=== PATIENT | male | born 1945 | race Caucasian/White ===

== ENCOUNTER 2017-04-15 07:47 | Day surgery (SDC) | payer MEDICARE, BC ==
[~2017-04-15 07:47] MED LIST: DEXAMETHASONE SOD PHOSPHATE 10 MG/ML 1 ML VIAL IV ONE; HEPARIN SODIUM,PORCINE 5,000 UNIT/ML 1 ML VIAL SQ ONE; LACTATED RINGERS 1,000 ML IV SCH; LIDOCAINE 1% 20 ML VIAL (10MG/ML) FOR IV START INTRADERMA PRN; MIDAZOLAM 2 MG/2 ML VIAL IV PRN; ONDANSETRON 4 MG/2 ML VIAL IVP ONE; SCOPOLAMINE 1.5MG/72HR PATCH TRANSDERM ONE
--- NOTE | 2017-04-15 08:14 | P.GSHP ---
History of Present Illness H&P Date: 04/15/17 Chief Complaint: Ventral hernia Patient was last seen in January. The patient has complaints of a bulge in the upper midabdomen in addition to a bulge in the right arm. Both areas are increasing in size. Mild pain at times. Denies nausea vomiting. No change in bowel habits. No prior surgeries at these locations. Past Medical History Past Medical History: GERD/Reflux, Sleep Apnea/CPAP/BIPAP Additional Past Medical History / Comment(s): SEASONAL ALLERGIES. HYPOGLYCEMIC. USE CPAP. History of Any Multi-Drug Resistant Organisms: None Reported Past Surgical History: Joint Replacement Additional Past Surgical History / Comment(s): MAJOR INJURY TO RIGHT HAND WITH ARTIFICIAL JOINTS. LEFT HAND INJURY, PARTIAL AMPUTATION OF INDEX FINGER. LUMBAR SURGERY. Past Anesthesia/Blood Transfusion Reactions: No Reported Reaction Past Psychological History: No Psychological Hx Reported Smoking Status: Former smoker Past Alcohol Use History: None Reported Additional Past Alcohol Use History / Comment(s): SMOKED FOR 35 YRS, ABOUT 2 PPW , QUIT 2001. Past Drug Use History: None Reported - Past Family History Mother Family Medical History: No Reported History Medications and Allergies Home Medications Medication Instructions Recorded Confirmed Type Cyclobenzaprine [Flexeril] 10 mg PO HS 04/13/17 04/13/17 History Diclofenac Sodium [Voltaren] 75 mg PO QAM 04/13/17 04/13/17 History Fluticasone Nasal [place] [Flonase 1 dose NASAL DAILY 04/13/17 04/13/17 History Nasal [place]] Omeprazole 20 mg PO BID 04/13/17 04/13/17 History Simvastatin 40 mg PO HS 04/13/17 04/13/17 History Allergies Allergy/AdvReac Type Severity Reaction Status Date / Time No Known Allergies Allergy Verified 04/13/17 09:03 Surgical - Exam Physical exam: General: Well-developed, well-nourished HEENT: Normocephalic, sclerae nonicteric Abdomen: Nontender, nondistended, midway between xiphoid and umbilicus is a nonreducible mass consistent with an incarcerated ventral hernia fascial defect nonpalpable Extremities: No edema, 5 cm subcutaneous mass lateral right brachial region Neuro: Alert and oriented Assessment and Plan (1) Ventral hernia Narrative/Plan: Will proceed with lipoma excision and repair incarcerated ventral hernia with mesh at this time. Risks of bleeding, infection, recurrence, chronic pain, numbness, scarring, bowel injury and adhesions, seroma formation were discussed. He understands and wishes to proceed. Current Visit: Yes Status: Acute Code(s): K43.9 - VENTRAL HERNIA WITHOUT OBSTRUCTION OR GANGRENE SNOMED Code(s): 112514692
[2017-04-15] MEDS ORDERED: MIDAZOLAM 2 MG/2 ML VIAL IVP ONE (09:15)
[2017-04-15 09:20] LABS: Glucose,Whole Blood 94 mg/dL (75-99)
--- NOTE | 2017-04-15 09:44 | P.ONQ ---
Anesthesiology Proc Note - PNB - Peripheral Nerve Block Performed Other (see comment) Time Out Performed: Yes (Bilateral Rectus Sheath block) Procedure Start Time: :01 Procedure Stop Time: :17 Indication: Acute Post-Operative Pain, Requested by physician Sedation Type: Sedate with meaningful contact maintained Preparation: Sterile Prep Position: Supine Catheter: None Needle Size: 100mm (4") Needle Gauge: 20 Technique: Ultrasound Injectate: 0.5% Ropivacaine (see comment for volume) (Total of 40 cc) Blood Aspirated: No Pain Paresthesia on Injection Noted: No Resistance on Injection: Normal
[2017-04-15] MEDS ORDERED: fentaNYL (PF) 50 MCG/ML 2 ML AMP ONE (09:54)
[2017-04-15] MEDS ORDERED: MIDAZOLAM 2 MG/2 ML VIAL ONE (09:54)
[2017-04-15] MEDS: ceFAZolin IN SWFI 2 GM/20 ML SYRINGE IVP ONE ×2 (09:54→09:58)
[2017-04-15] MEDS ORDERED: ePHEDrine SULFATE/0.9% NACL/PF 50 MG/5 ML SYRINGE IV ONE (09:54)
[2017-04-15] MEDS ORDERED: LIDOCAINE 1% INJ 10MG/ML (20 ML MDV) ONE (09:54)
[2017-04-15] MEDS ORDERED: PROPOFOL 10 MG/ML 20 ML VIAL IV ONE (09:54)
[2017-04-15] MEDS ORDERED: ROPIVACAINE 5 MG/ML 30 ML VIAL ONE (09:54)
[2017-04-15] MEDS ORDERED: LIDOCAINE 2%-EPI 1:100,000 20 ML VIAL ONE (09:54)
[2017-04-15] MEDS ORDERED: SUCCINYLCHOLINE CHLORIDE VIAL 200 MG/10 ML VIAL IV ONE (09:54)
[2017-04-15] MEDS ORDERED: BUPIVACAINE (PF) 0.25% 30 ML VIAL SQ ONE (10:11)
[2017-04-15] MEDS ORDERED: HYDROcodone/APAP 5-325MG 1 EACH TAB PO PRN (11:04)
[2017-04-15] MEDS ORDERED: NALOXONE 0.4 MG/ML 1 ML VIAL IV PRN (11:04)
[2017-04-15 11:15] VITALS: TEMP 98.1
--- NOTE | 2017-04-15 11:25 | P.OP ---
Date of Procedure: 04/15/17 Procedure(s) Performed: PREOPERATIVE DIAGNOSIS: Ventral hernia, right arm lipoma POSTOPERATIVE DIAGNOSIS: Same PROCEDURE: Repair ventral hernia with mesh, excision of right arm lipoma SURGEON: Brant EBL: Minimal ANESTHESIA: General COMPLICATIONS: None OPERATIVE PROCEDURE: Patient was placed in the operating table in the supine position. The patient's abdomen was prepped and draped in usual sterile fashion. A vertical incision made overlying the mass in the upper midabdomen. A hernia was identified. The hernia sac was excised. The omentum which was present within the hernia was reduced back into the peritoneal cavity. The defect measured 1.5 cm in diameter. A 4.3cm ventral X mesh was placed beneath the fascia and sutured in place using 0 Ethibond trans-fascial sutures. The fascia was repaired in a vest over pants fashion using 0 Ethibond sutures. The subcutaneous tissues were closed using 3-0 Vicryl sutures. The skin was closed using 4-0 Monocryl sutures. Steri-Strips and sterile dressings were applied. Next the right arm was prepped and draped. A small longitudinal incision was made overlying the palpable mass. This turned out to be a lipoma. This measured 5 x 3 cm in size. This was fully excised. The subcutaneous tissues were closed using 3-0 Vicryl sutures and the skin was closed using 4-0 Monocryl sutures. Steri-Strips and sterile dressings were applied. DISPOSITION: Stable to recovery room
[2017-04-15] MEDS: HYDROmorphone 0.5 MG/0.5 ML SYRINGE IVP PRN ×4 (11:34→12:07)
[2017-04-15] MEDS ORDERED: SODIUM CHLORIDE 0.9% 1,000 ML IV ONE ×2 (11:39)
[2017-04-15 12:19] VITALS: RESP 18
[2017-04-15] MEDS ORDERED: PROMETHAZINE INJ 25 MG/ML 1 ML VIAL IVPB ONE (13:33)
[2017-04-15 13:38] VITALS: BP 136/73; PULSE 66
== END 2017-04-15 14:18 | disposition home or self-care (01) ==
LOC: OR 07:47
PROVIDERS: ATTEND Surgery
DX: K43.9 Ventral hernia without obstruction or gangrene (principal); D17.21 Benign lipomatous neoplasm of skin and subcutaneous tissue of right arm; K21.9 Gastro-esophageal reflux disease without esophagitis; G47.30 Sleep apnea, unspecified; Z99.89 Dependence on other enabling machines and devices; J30.2 Other seasonal allergic rhinitis; E16.2 Hypoglycemia, unspecified; E78.5 Hyperlipidemia, unspecified; M19.90 Unspecified osteoarthritis, unspecified site; Z79.899 Other long term (current) drug therapy; Z87.891 Personal history of nicotine dependence
CPT/HCPCS: 49560; 49568; 11406; 12032; 88304; 88302; C1781; J2250; J0330; J1644; J1100; J2550; J0690; J2405; J2001; J3010; J2795; J2704; J1170; 86850; 86900; 86901

== ENCOUNTER → 2017-10-06 | Outpatient (CLI) | payer MEDICARE, BC ==
--- NOTE | 2017-10-07 07:11 | US ---
EXAMINATION TYPE: US kidneys/renal and bladder DATE OF EXAM: 10/06/2017 COMPARISON: NONE CLINICAL HISTORY: N13.30 Hydronephrosis. Pt states H/O renal stones, lithotripsy in June EXAM MEASUREMENTS: Right Kidney: 12.7 x 6.3 x 7.1 cm Left Kidney: 11.5 x 6.3 x 5.9 cm Right Kidney: Cyst= 6.2 x 5.3 x 9.7 cm Left Kidney: No evidence of hydro, possible small calculi (<0.5 cm) scattered throughout Bladder: wnl Bilateral Jets seen: Yes There is no evidence for hydronephrosis at this point in time. The urinary bladder is anechoic. Bila teral ureteral jets are seen. IMPRESSION: 1. No evidence of hydronephrosis bilaterally. 2. Simple appearing 6.2 x 5.3 x 9.7 cm right renal cysts. 3. Multiple punctate left-sided nonobstructing hyperechoic foci, possible less than 5 mm renal cysts versus prominent renal sinus fat as no significant shadowing is seen.
== END | disposition home or self-care (01) ==
LOC: RADUSWWP 15:40
PROVIDERS: ATTEND Urology
DX: N28.1 Cyst of kidney, acquired (principal); R93.422 Abnormal radiologic findings on diagnostic imaging of left kidney
CPT/HCPCS: 76770

== ENCOUNTER → 2017-12-09 | Outpatient (CLI) | payer MEDICARE, BC ==
[2017-12-09 10:24] LABS: Blood Urea Nitrogen 33 mg/dL (9-20)
--- NOTE | 2017-12-09 14:14 | NM ---
EXAMINATION TYPE: NM bone scan whole body DATE OF EXAM: 12/09/2017 COMPARISON: NONE HISTORY: Prostate cancer Delayed whole-body scanning was performed following the injection of 23.2 mCi Tc 99m MDP. Images acq uired 3 hours post injection. FINDINGS: Abnormal uptake involving the shoulders, wrists, knees, and feet likely is post arthritic. Intermediate intensity uptake seen throughout the cervical, thoracic and lumbar spine. More localized focal area of increased uptake involving the left lateral margin of the mid to upper cervical spine. IMPRESSION: 1. Abnormal uptake involving the vertebral column is nonspecific felt to be most likely degenerative and should be correlated with x-ray particular attention to the mid left lateral margin of the cervic al spine. Correlation was made with CT of the pelvis dated 12/09/2017 which demonstrated tiny foci of sclerosis involving the right femur and acetabulum which does not demonstrate significant uptake. Abn ormal uptake involving the lower lumbar spine appears to be degenerative based on the visualized port ions of the vertebral column imaged by CT pelvis. 2. Remaining uptake involving the appendicular skeleton is likely post arthritic.
--- NOTE | 2017-12-09 14:43 | CT ---
EXAMINATION TYPE: CT pelvis w con DATE OF EXAM: 12/09/2017 COMPARISON: 10/06/2017 ultrasound INDICATION: Prostate Cancer DLP: 1257 mGycm, Automated exposure control for dose reduction was used. CONTRAST: 100 ml mL of Isovue 300. Study performed with Oral Contrast TECHNIQUE: Axial images were obtained from above the diaphragm to the pubic rami in the axial plane a t 5 mm thick sections. Reconstructed images are reviewed on the computer in the coronal plane. FINDINGS: Limited lower portion CT upper ABDOMEN : Liver: A cyst may be at the edge of the [id number]. This cannot be classified as a simple cyst and this could be followed with ultrasound of the abdomen. This measures 1.1 cm. Lower portion of the li cora visualized otherwise is unremarkable. Spleen: Punctate granulomas within the inferior portion spleen within the [id number]. Pancreas: Normal Adrenal glands: The adrenal glands are normal. Gallbladder: Normal Kidneys: No masses are evident. No hydronephrosis is present. There is a 1.8 cm cyst measuring 19 H ounsfield units posterior superior pole left kidney. There is a large cyst within the mid right kidne y measuring 10.0 x 5.6 cm and 4 Hounsfield units. A 0.9 cm cortical renal cyst is within the anterior right renal cortex. Aorta: Vascular calcification is within the aorta. Vascular calcification extends to the iliac vesse ls. Inferior vena cava: Normal. CT PELVIS: Loops of bowel within the abdomen and pelvis are normal. There are loops of bowel which are incom pletely distended or lack oral contrast limiting their evaluation. Oral contrast extends to the dista l small bowel loops. Appendix: Normal as visualized. Urinary bladder: Normal. Genitourinary structures: Prostate is prominent. Osseous structures: No suspicious lytic or sclerotic lesions. Degenerative disc changes and spondylos is are within the lumbar spine. Sacroiliac joint degenerative changes are present. IMPRESSIONS: 1. Simple appearing renal cysts. 2. Prominent prostate compatible with the patient's reported prostate cancer. Metastatic disease is n ot identified. 3. Degenerative changes within the lumbar spine. 4. Partially visualized hypodensity within the liver at the edge the [id number]. Consider ultrasou nd abdomen for additional evaluation.
== END | disposition home or self-care (01) ==
LOC: RADNMMAIN 09:35
PROVIDERS: ATTEND Urology
DX: N28.1 Cyst of kidney, acquired (principal); K76.89 Other specified diseases of liver; R94.8 Abnormal results of function studies of other organs and systems
CPT/HCPCS: 82565; 84520; 72193; 36415; 78306; A9503; Q9967

== ENCOUNTER → 2017-12-15 | Outpatient (CLI) | payer MEDICARE, BC ==
--- NOTE | 2017-12-15 09:03 | XR ---
EXAMINATION TYPE: XR cervical spine comp DATE OF EXAM: 12/15/2017 COMPARISON: NONE HISTORY: Pain TECHNIQUE: Four views are submitted. FINDINGS: The odontoid is intact. There are no compression deformities. The prevertebral soft tissue structur es are within normal limits. Diffuse osteopenia. There is severe degenerative disc disease at level C3-T1 with severe facet arthropathy and posterior spondylosis. Anterior spur formation noted. There i s a 2 mm anterolisthesis of C3 on C4. Foraminal encroachment at these levels noted bilaterally. IMPRESSION: 1. Severe multilevel degenerative disc disease with grade 1 anterolisthesis C3 on C4. Severe bilatera l foraminal encroachment level C3-T1.
== END | disposition home or self-care (01) ==
LOC: RADXRMAIN 08:33
PROVIDERS: ATTEND Urology
DX: M50.33 Other cervical disc degeneration, cervicothoracic region (principal); M43.12 Spondylolisthesis, cervical region; C61 Malignant neoplasm of prostate
CPT/HCPCS: 72050

== ENCOUNTER → 2018-02-10 | Outpatient (CLI) | payer MEDICARE, BC ==
[2018-02-10 09:20] LABS: Appearance,Urine Clear (Clear); Bilirubin,Urine Negative (Negative); Blood,Urine Negative (Negative); Color,Urine Dark Yellow; Glucose,Urine (UA) Negative (Negative); Ketones,Urine Negative (Negative); Leukocyte Esterase,Urine Trace (Negative); Mucus,Urine Few /hpf; Nitrite,Urine Negative (Negative); PH, Urine 5.5 (5.0-8.0); Protein,Urine Trace (Negative); Specific Gravity,Urine 1.038 (1.001-1.035); Urobilinogen,Urine <2.0 mg/dL (<2.0); WBC,Urine 2 /hpf (0-5)
[2018-02-10 09:22] LABS: Basophils # (A) 0.1 k/uL (0-0.2); Basophils % (A) 1 %; Eosinophils # (A) 0.2 k/uL (0-0.7); Eosinophils % (A) 4 %; HCT 45.3 % (39.0-53.0); Lymphocytes # (A) 1.4 k/uL (1.0-4.8); Lymphocytes % (A) 27 %; MCH 29.6 pg (25.0-35.0); MCV 89.6 fL (80.0-100.0); Mean Platelet Volume 6.7; Monocytes # (A) 0.3 k/uL (0-1.0); Monocytes % (A) 6 %; Neutrophils % (A) 58 %; Platelet Count 275 k/uL (150-450); RBC 5.06 m/uL (4.30-5.90); RDW 13.3 % (11.5-15.5); WBC 5.1 k/uL (3.8-10.6)
[2018-02-10 09:47] LABS: Anion Gap 9 mmol/L; Blood Urea Nitrogen 27 mg/dL (9-20); Calcium 9.6 mg/dL (8.4-10.2); Carbon Dioxide 24 mmol/L (22-30); Chloride 109 mmol/L (98-107); Glucose 103 mg/dL (74-99); Potassium 4.6 mmol/L (3.5-5.1); Sodium 142 mmol/L (137-145)
== END | disposition home or self-care (01) ==
LOC: LABPAT 08:26
PROVIDERS: ATTEND Urology
DX: Z01.812 Encounter for preprocedural laboratory examination (principal); C61 Malignant neoplasm of prostate
CPT/HCPCS: 36415; 80048; 81001; 85025; 87086

== ENCOUNTER 2018-02-17 11:12 | Day surgery (SDC) | payer MEDICARE, BC ==
[2018-02-10 15:23] VITALS: BMI 28.3
--- NOTE | 2018-02-11 13:40 | P.GSHP ---
History of Present Illness H&P Date: 02/11/18 Chief Complaint: Prostate cancer The patient is a 72-year-old male whose PSA level emily to 3.97. MARTIN revealed right apical induration. In view of this, he underwent a prostate ultrasound with biopsies, revealing a prostate volume of 37 mL. 5 of 12 biopsies showed Katty 78, all on the right side. A computed tomography scan of the pelvis was negative. A bone scan showed increased uptake in the spine, likely due to degenerative changes. I had a lengthy discussion with the patient and his regarding alternative treatment options. Specifically, the pros and cons of IMRT/ADT were compared and contrasted with those of robotic-assisted laparoscopic prostatectomy (RALP). He has elected to undergo a left nerve sparing RALP with pelvic lymphadenectomy. Past Medical History Past Medical History: GERD/Reflux, Prostate Disorder, Sleep Apnea/CPAP/BIPAP Additional Past Medical History / Comment(s): dx prostate CA Nov 2017-no radiation or chemo,steroid injection Dec 2017,SEASONAL ALLERGIES. HYPOGLYCEMIC. USE CPAP,kidney stone History of Any Multi-Drug Resistant Organisms: None Reported Past Surgical History: Back Surgery, Hernia Repair, Joint Replacement Additional Past Surgical History / Comment(s): MAJOR INJURY TO RIGHT HAND WITH ARTIFICIAL JOINTS. LEFT HAND INJURY-PARTIAL AMPUTATION OF Lt-INDEX FINGER. LUMBAR SURGERY,kidney stone removed,umbilical hernia repair with mesh Past Anesthesia/Blood Transfusion Reactions: No Reported Reaction Additional Past Anesthesia/Blood Transfusion Reaction / Comment(s): no hx blood transfusion Smoking Status: Former smoker - Past Family History Mother Family Medical History: No Reported History Medications and Allergies Home Medications Medication Instructions Recorded Confirmed Type Cyclobenzaprine [Flexeril] 10 mg PO HS 04/13/17 02/10/18 History Diclofenac Sodium [Voltaren] 75 mg PO QAM 04/13/17 02/10/18 History Fluticasone Nasal [place] [Flonase 1 dose NASAL DAILY 04/13/17 02/10/18 History Nasal [place]] Omeprazole 20 mg PO BID 04/13/17 02/10/18 History Simvastatin 40 mg PO HS 04/13/17 02/10/18 History Multivit-Min/FA/Lycopen/Lutein 1 each PO DAILY 02/10/18 02/10/18 History [Centrum Silver Men Tablet] Ortho 7 And Instaflex Jt Suppl 2 tab PO DAILY 02/10/18 02/10/18 History Allergies Allergy/AdvReac Type Severity Reaction Status Date / Time No Known Allergies Allergy Verified 02/10/18 15:05 Surgical - Exam - General well developed, well nourished, no distress - Respiratory normal respiratory effort, clear to auscultation - Cardiovascular Rhythm: regular Abnormal Heart Sounds: no systolic murmur, no diastolic murmur, no rub, no S3 Gallop, no S4 Gallop, no click, no other - Abdomen Abdomen: soft, non tender, no guarding, no rigid, no rebound - Genitourinary normal penis with no external lesions, testicles non-tender - Rectum Rectum: normal sphincter tone, no masses, other (Prostate mildly enlarged, right apical induration) - Psychiatric oriented to time, oriented to person, oriented to place, speech is normal, memory intact Assessment and Plan (1) Malignant neoplasm of prostate Status: Acute Code(s): C61 - MALIGNANT NEOPLASM OF PROSTATE SNOMED Code(s): 342204872 Plan: Left Nerve-Sparing Robotic Assisted Laparoscopic Prostatectomy (RALP) and Bilateral Pelvic Lymphadenectomy. The procedure has been reviewed in detail with the patient. I explained that this is a procedure of choice in a healthy male under 70 years of age or in any person who has an expected longevity of greater than 10 years. I explained in great detail the potential risks, which include anesthesia, bleeding, and infection. In addition, I went into great detail concerning the two common complications, ie impotence and urinary incontinence. I explained that other complications include intestinal injury ( which may require a colostomy), ureteral injury, swelling of the penis post- operatively, bladder neck contracture, urethral stricture, lymphocele, post- operative ileus, thrombophlebitis, wound separation, and possible urinary fistula. The patient has also been advised of the possibility of treatment failure, and the possible need for adjuvant therapy. He is interested in maintaining potency and thus desires left neurovascular bundle preservation. However, he understands the probability of postoperative erectile dysfunction despite preservation of one neurovascular bundle. He has elected to undergo an RALP rather than an open radical retropubic prostatectomy , but he understands the possible need to convert this to an open procedure.
[~2018-02-17 11:12] MED LIST changes: -HEPARIN SODIUM,PORCINE 5,000 UNIT/ML 1 ML VIAL SQ ONE; +HYDROmorphone 1 MG/ML 1 ML SYRINGE IVP PRN; -LACTATED RINGERS 1,000 ML IV SCH; -LIDOCAINE 1% 20 ML VIAL (10MG/ML) FOR IV START INTRADERMA PRN; +ceFAZolin IN SWFI 2 GM/20 ML SYRINGE IVP ONE
[2018-02-17] MEDS: LACTATED RINGERS 1,000 ML IV SCH ×2 (11:51→13:12)
[2018-02-17] MEDS: LIDOCAINE 1% 20 ML VIAL (10MG/ML) FOR IV START INTRADERMA PRN ×2 (11:53→11:54)
[2018-02-17 11:59] LABS: Glucose,Whole Blood 89 mg/dL (75-99)
[2018-02-17] MEDS ORDERED: fentaNYL (PF) 50 MCG/ML 2 ML AMP ONE (13:16)
[2018-02-17] MEDS ORDERED: MIDAZOLAM 2 MG/2 ML VIAL ONE (13:16)
[2018-02-17] MEDS ORDERED: LIDOCAINE 1% INJ 10MG/ML (20 ML MDV) ONE (13:16)
[2018-02-17] MEDS ORDERED: ePHEDrine SULFATE/0.9% NACL/PF 50 MG/5 ML SYRINGE IV ONE (13:16)
[2018-02-17] MEDS ORDERED: GLYCOPYRROLATE 0.2 MG/ML 2 ML VIAL ONE (13:16)
[2018-02-17] MEDS ORDERED: ROCURONIUM BROMIDE 10 MG/ML 10 ML VIAL IV ONE (13:16)
[2018-02-17] MEDS ORDERED: NEOSTIGMINE 1 MG/ML 10 ML VIAL ONE (13:16)
[2018-02-17] MEDS ORDERED: SUCCINYLCHOLINE CHLORIDE 100 MG/5 ML SYR IV ONE (13:16)
[2018-02-17] MEDS ORDERED: PROPOFOL 10 MG/ML 20 ML VIAL IV ONE (13:16)
[2018-02-17] MEDS ORDERED: BUPIVACAINE (PF) 0.25% 30 ML VIAL SQ ONE ×2 (14:07→17:14)
[2018-02-17] MEDS ORDERED: ONDANSETRON 4 MG/2 ML VIAL IVP PRN (17:26)
--- NOTE | 2018-02-17 17:33 | P.OP ---
Date of Procedure: 02/17/18 Preoperative Diagnosis: Adenocarcinoma of the prostate Postoperative Diagnosis: Same Procedure(s) Performed: Left robotic-assisted laparoscopic prostatectomy (RALP) with bilateral pelvic lymphadenectomy Anesthesia: JALIL Surgeon: Zackary Peguero Scheduling Manager #1: Alanna Pate Estimated Blood Loss (ml): 150 IV fluids (ml): 1,200 Pathology: other (Prostate, seminal vesicles, pelvic lymph nodes) Condition: stable Disposition: PACU Indications for Procedure: The patient is a 72-year-old male whose PSA level emily to 3.97. MARTIN revealed right apical induration. In view of this, he underwent a prostate ultrasound with biopsies, revealing a prostate volume of 37 mL. 5 of 12 biopsies showed [place] 78, all on the right side. A computed tomography scan of the pelvis was negative. A bone scan showed increased uptake in the spine, likely due to degenerative changes. I had a lengthy discussion with the patient and his regarding alternative treatment options. Specifically, the pros and cons of IMRT/ADT were compared and contrasted with those of robotic-assisted laparoscopic prostatectomy (RALP). He has elected to undergo a left nerve sparing RALP with pelvic lymphadenectomy. Operative Findings: No evidence of extraprostatic disease. Description of Procedure: The patient was taken in the operating room and placed in the dorsal lithotomy position, with his legs supported in Jose Guadalupe stirrups. He was carefully positioned on a beanbag for stability. The abdomen and external genitalia were prepped and draped sterilely. A Portillo catheter was inserted. The Veress needle was passed through the anterior abdominal wall immediately cephalad to the umbilicus, and insufflation was performed to a pressure of 20 mm Hg. Once insufflation was performed, the Veress needle was removed and a supraumbilical incision was made, through which an 8 mm camera port was placed. Under camera guidance, 3 8 mm robotic ports were placed, 2 on the left and one on the right. An additional 12 mm port was placed on the right lateral side for use as an assistant analyst port. A 5 mm port was placed to the right of the camera port for suction. The patient was placed in Trendelenburg position, and docking was then performed to the da Candis Xi system utilizing a 4-arm approach. The abdomen was examined. The sigmoid colon was mobilized out of the pelvis. The peritoneum was incised lateral to the medial umbilical ligaments bilaterally , exposing the pubis. The peritoneum was then incised across the midline, allowing the bladder flap to be taken down. The endopelvic fascia was opened bilaterally, and muscular attachments from the urogenital diaphragm were swept away from the prostate. Extended bilateral pelvic lymphadenectomies were performed in the standard fashion. The peritoneal incisions were extended in a cephalad direction, and the vas deferens were divided bilaterally. Margins of dissection were the bifurcation of the iliac vessels proximally, the circumflex iliac vein distally , the genital femoral nerve laterally, and the obturator nerve medially. A combination of sharp and blunt dissection was used. Care was taken to avoid any neurovascular injury, and the use of monopolar electrocautery was avoided immediately adjacent to neurovascular structures. The lymphatic package was clipped distally. No enlarged lymph nodes were encountered. There were no complications. The vesical neck was incised transversely, down to the lumen. The Portillo catheter was brought out through the anterior vesical neck incision and was used for traction. The posterior aspect of the vesical neck was incised, such that the full-thickness of the vesical neck was divided. The anterior layer of the Denonvilliers fascia was incised, exposing the vas deferens. Each were isolated and divided. Next, each of the seminal vesicles were dissected away from adjacent tissues, and vascular attachments were cauterized and divided. The posterior leaf of Denonvilliers fascia was incised transversely, allowing entry into the plane between the prostate and rectum. With lateral spreading, this plane was developed down to the apex. This exposed the lateral vascular pedicles bilaterally. These were clipped and divided in an antegrade fashion, down to the apex. The use of electrocautery was avoided to prevent thermal damage to the nerves. The plane of dissection was immediately adjacent to the prostate on the left to preserve the neurovascular bundle, whereas the right neurovascular bundle was not preserved. The remaining apical attachments were swept away from the prostate. The dorsal venous complex was incised, as well as periurethral tissue. At this point, only the urethra remained intact. This was transected immediately distal to the prostatic apex using cold scissors. The specimen was placed within a specimen bag. The dorsal venous complex was sutured using a V-Loc suture in a running fashion. A second V-Loc suture was then used to place the Nathan stitch, incorporating the rhabdosphincter and the edge of Denonvilliers fascia. This allowed the bladder to be taken down to the urethra, leaving the vesical neck immediately adjacent to the urethra. The vesicourethral anastomosis was then performed using a V-Loc suture in a running fashion. After completing the anastomosis, an 18-Persian Portillo catheter was placed and approximately 150 mL of 0.9 normal saline were instilled into the bladder. No extravasation of irrigant from the vesicourethral anastomosis was noted. A small amount of oozing was noted from the vascular pedicles, so Surgicel was placed bilaterally. The patient was returned to the supine position. Undocking was performed, and the specimen bag sutures were passed through the camera port. After removing all the ports and allowing all of the CO2 to be released from the peritoneal cavity, the camera port incision was enlarged to allow removal of the surgical specimen. The fascia of this incision was then closed using 0 Vicryl suture in an interrupted [id number] fashion. Each of the skin incisions were then closed using 4-0 Monocryl suture in a subcuticular fashion. Dermabond was applied to each incision. The Portillo catheter was connected to gravity drainage. All sponge and needle counts were correct. The patient tolerated the procedure well was taken to the recovery room in stable condition.
[2018-02-17] MEDS ORDERED: HYDROmorphone 1 MG/ML 1 ML SYRINGE IVP ONE (17:50)
[2018-02-17] MEDS: HEPARIN SODIUM,PORCINE 5,000 UNIT/ML 1 ML VIAL SQ SCH (21:54)
[2018-02-17] MEDS: KETOROLAC 30 MG/ML 1 ML VIAL IVP SCH (21:54)
[2018-02-17] MEDS: CYCLOBENZAPRINE 10 MG TAB PO SCH (21:54)
[2018-02-17] MEDS: ATORVASTATIN 20 MG TAB PO SCH (21:54)
[2018-02-17] MEDS: ACETAMINOPHEN IV (For NPO) 1,000 MG in SALINE 1 100ML.BAG IVPB SCH (21:55)
[2018-02-17] MEDS: DEXTROSE 5%-0.45% NACL 1,000 ML IV SCH (21:56)
[2018-02-18] MEDS: ACETAMINOPHEN IV (For NPO) 1,000 MG in SALINE 1 100ML.BAG IVPB SCH ×5 (01:23→22:17)
[2018-02-18] MEDS: KETOROLAC 30 MG/ML 1 ML VIAL IVP SCH ×5 (01:24→22:16)
[2018-02-18] MEDS: HYDROmorphone 1 MG/ML 1 ML SYRINGE IVP PRN ×2 (02:39→21:14)
[2018-02-18] MEDS: DEXTROSE 5%-0.45% NACL 1,000 ML IV SCH ×4 (05:28→22:18)
[2018-02-18] MEDS: PANTOPRAZOLE 40 MG TABLET PO SCH (09:11)
[2018-02-18] MEDS: HEPARIN SODIUM,PORCINE 5,000 UNIT/ML 1 ML VIAL SQ SCH ×2 (09:12→21:14)
[2018-02-18] MEDS: FLUTICASONE 50MCG/SPRAY NASAL 16GM NASAL SCH (10:22)
[2018-02-18] MEDS: LACTATED RINGERS 1,000 ML IV SCH (17:01)
[2018-02-18] MEDS: CYCLOBENZAPRINE 10 MG TAB PO SCH (21:14)
[2018-02-18] MEDS: ATORVASTATIN 20 MG TAB PO SCH (21:14)
[2018-02-19] MEDS: KETOROLAC 30 MG/ML 1 ML VIAL IVP SCH ×2 (04:51→09:12)
[2018-02-19] MEDS: ACETAMINOPHEN IV (For NPO) 1,000 MG in SALINE 1 100ML.BAG IVPB SCH ×2 (04:52→15:49)
[2018-02-19] MEDS: HEPARIN SODIUM,PORCINE 5,000 UNIT/ML 1 ML VIAL SQ SCH (09:12)
[2018-02-19] MEDS: PANTOPRAZOLE 40 MG TABLET PO SCH (09:13)
[2018-02-19] MEDS: FLUTICASONE 50MCG/SPRAY NASAL 16GM NASAL SCH (09:14)
[2018-02-19] MEDS: DEXTROSE 5%-0.45% NACL 1,000 ML IV SCH (10:58)
[2018-02-19 15:49] VITALS: BP 150/72; PULSE 67; RESP 12; TEMP 98.5
--- NOTE | 2018-02-19 16:40 | P.DS ---
Providers Expected date of discharge: 02/19/18 Attending physician: Zackary Peguero Primary care physician: Gilmer Lee Bacheldor - Discharge Diagnosis(es) (1) Malignant neoplasm of prostate Current Visit: No Status: Acute Hospital Course: On the day of admission, the patient underwent an uncomplicated robotic assisted laparoscopic prostatectomy (RALP) with bilateral pelvic lymphadenectomy. The postoperative course was unremarkable. On the first postoperative day, the patient reported some abdominal discomfort and an unsteady gait. He therefore remained hospitalized an additional day. At the time of discharge, he was tolerating diet and passing flatus. He was ambulating well and overall felt quite good. His incisions were clean and dry. The catheter was draining clear yellow urine. Procedures: RALP with bilateral pelvic lymphadenectomy on 02/17/2018 Patient Condition at Discharge: Good Plan - Discharge Summary Discharge Rx Participant: Yes New Discharge Prescriptions: New Ketorolac [Toradol] 10 mg PO Q6HR #15 tab Ciprofloxacin HCl [Cipro] 250 mg PO Q12HR #6 tablet No Action Simvastatin 40 mg PO HS Omeprazole 20 mg PO BID Fluticasone Nasal [place] [Flonase Nasal [place]] 1 dose NASAL DAILY Diclofenac Sodium [Voltaren] 75 mg PO QAM Cyclobenzaprine [Flexeril] 10 mg PO HS Multivit-Min/FA/Lycopen/Lutein [Centrum Silver Men Tablet] 1 each PO DAILY Ortho 7 And Instaflex Jt Suppl 2 tab PO DAILY Discharge Medication List Cyclobenzaprine [Flexeril] 10 mg PO HS 04/13/17 [History] Diclofenac Sodium [Voltaren] 75 mg PO QAM 04/13/17 [History] Fluticasone Nasal [place] [Flonase Nasal [place]] 1 dose NASAL DAILY 04/13/17 [ History] Omeprazole 20 mg PO BID 04/13/17 [History] Simvastatin 40 mg PO HS 04/13/17 [History] Multivit-Min/FA/Lycopen/Lutein [Centrum Silver Men Tablet] 1 each PO DAILY 02/10 [History] Ortho 7 And Instaflex Jt Suppl 2 tab PO DAILY 02/10/18 [History] Ciprofloxacin HCl [Cipro] 250 mg PO Q12HR #6 tablet 02/19/18 [Rx] Ketorolac [Toradol] 10 mg PO Q6HR #15 tab 02/19/18 [Rx] Follow up Appointment(s)/Referral(s): Zackary Peguero MD [STAFF PHYSICIAN] - 02/25/18 Activity/Diet/Wound Care/Special Instructions: Discharge home with Portillo catheter. Okay to shower. Diet as tolerated. No lifting, driving, or strenuous activity. Patient should begin taking ciprofloxacin on 02/24/2018. Discharge Disposition: HOME SELF-CARE
--- NOTE | 2018-02-20 08:20 | P.PN ---
Subjective Progress Note Date: 02/18/18 Principal diagnosis: POD #1, s/p RALP Mr. Gill tolerated clear liquid diet. He reports mild abdominal discomfort, and feels unsteady on his feet. He denies chest pain and shortness of breath. Objective - Vital Signs Vital signs: Vital Signs Temp 98.1 F 02/18/18 08:19 Pulse 74 02/18/18 08:19 Resp 16 02/18/18 08:19 BP 111/57 02/18/18 08:19 Pulse Ox 96 02/18/18 08:19 Intake & Output 02/17/18 02/18/18 02/18/18 18:59 06:59 18:59 Intake Total 1300 1400 Output Total 150 500 Balance 1150 900 Intake: IV 1300 Intake, IV Titration 1400 Amount ACETAMINOPHEN IV (For NPO 400 ) 1,000 mg In Saline 1 100ml.bag @ 400 mls/hr IVPB Q6H ANTHONY Rx#: [id number] Dextrose 5%-0.45% NaCl 1, 1000 000 ml @ 125 mls/hr IV . Q8H ANTHONY Rx#:[id number] Output: Urine 500 Estimated Blood Loss 150 Other: Voiding Method Indwelling Catheter Indwelling Catheter # Voids 1 - Constitutional General appearance: Present: average body habitus, cooperative, no acute distress - Gastrointestinal Gastrointestinal Comment(s): All incisions are clean and dry. General gastrointestinal: Present: soft. Absent: distended - Psychiatric Psychiatric: Present: A&O x's 3, appropriate affect Assessment and Plan (1) Malignant neoplasm of prostate Status: Acute Code(s): C61 - MALIGNANT NEOPLASM OF PROSTATE SNOMED Code(s): 167575866 Plan: Overall doing well. Advance diet and increase ambulation. Anticipate discharge home on 02/19/2018.
== END 2018-02-19 17:47 | disposition home or self-care (01) ==
LOC: OR 11:12 → 4SSUR 17:44 → OR 02-19 17:47
PROVIDERS: ATTEND Urology
DX: C61 Malignant neoplasm of prostate (principal); E78.5 Hyperlipidemia, unspecified; G47.30 Sleep apnea, unspecified; Z99.89 Dependence on other enabling machines and devices; Z87.442 Personal history of urinary calculi; Z96.698 Presence of other orthopedic joint implants; Z87.891 Personal history of nicotine dependence; Z79.1 Long term (current) use of non-steroidal anti-inflammatories (NSAID); Z79.899 Other long term (current) drug therapy
CPT/HCPCS: 88307; 88309; 55866; 38589; J2250; J1644 ×3; J1100; J2405; J2001; J3010; J1885 ×3; J1170 ×2; J0131 ×3; J0330; J2704; J0690; 86850; 86900; 86901

== ENCOUNTER → 2018-03-25 | Outpatient (CLI) | payer MEDICARE, BC | END | disposition home or self-care (01) | LOC: LABWHC1 07:14 | PROVIDERS: ATTEND Urology | DX: C61 Malignant neoplasm of prostate (principal) | CPT/HCPCS: 36415; 84153 ==

== ENCOUNTER 2018-05-13 12:00 | Inpatient (IN) | payer MEDICARE, BC ==
[2018-05-14 10:20] VITALS: BMI 28.3
[2018-05-17] MEDS ORDERED: LIDOCAINE 1% 20 ML VIAL (10MG/ML) FOR IV START INTRADERMA PRN (10:41)
[2018-05-19] MEDS ORDERED: ceFAZolin IN SWFI 2 GM/20 ML SYRINGE IVP ONE (05:00)
[2018-05-19] MEDS ORDERED: TRANEXAMIC ACID 1,000 MG in SODIUM CHLORIDE 0.9% 50 ML IVPB ONE ×4 (05:00)
[2018-05-19] MEDS ORDERED: ROPIVACAINE 246.25 MG, EPINEPHrine 0.5 MG, KETOROLAC 30 MG, cloNIDine HCL/PF 80 MCG, WA... MISCELLANE ONE ×5 (09:08)
[2018-05-19] MEDS: MELOXICAM 7.5 MG TAB PO ONE ×2 (11:27→17:35)
[2018-05-19] MEDS: ACETAMINOPHEN TAB 500 MG TAB PO ONE ×2 (11:27→17:35)
[2018-05-19] MEDS: LACTATED RINGERS 1,000 ML IV SCH ×4 (11:29→23:07)
[2018-05-19] MEDS ORDERED: DEXAMETHASONE SOD PHOSPHATE 10 MG/ML 1 ML VIAL IV ONE (11:38)
[2018-05-19] MEDS: ONDANSETRON 4 MG/2 ML VIAL IVP ONE ×2 (11:38→17:35)
[2018-05-19 11:53] LABS: Glucose,Whole Blood 92 mg/dL (75-99)
[2018-05-19] MEDS ORDERED: NALOXONE 0.4 MG/ML 1 ML VIAL IV PRN ×2 (13:09→14:02)
[2018-05-19] MEDS ORDERED: NA PHOS,M-B/NA PHOS,DI-BA 133 ML ENEMA RECTAL PRN (13:09)
[2018-05-19] MEDS ORDERED: HYDROmorphone 0.5 MG/0.5 ML SYRINGE IVP PRN ×3 (13:09)
[2018-05-19] MEDS ORDERED: TEMAZEPAM 15 MG CAP PO PRN (13:09)
[2018-05-19] MEDS ORDERED: BISACODYL 10 MG SUPP RECTAL PRN (13:09)
[2018-05-19] MEDS ORDERED: HYDROcodone/APAP 5-325MG 1 EACH TAB PO PRN ×2 (13:09)
[2018-05-19] MEDS ORDERED: hydrOXYzine PAMOATE 25 MG CAP PO PRN (13:09)
[2018-05-19] MEDS ORDERED: DIAZEPAM 5 MG TAB PO PRN (13:09)
[2018-05-19] MEDS ORDERED: HYDROcodone/APAP 7.5-325MG 1 EACH TAB PO PRN (13:09)
[2018-05-19] MEDS ORDERED: MAGNESIUM HYDROXIDE 2,400 MG/10 ML CUP PO PRN (13:09)
[2018-05-19] MEDS ORDERED: fentaNYL (PF) 50 MCG/ML 50 ML VIAL ONE (13:14)
[2018-05-19] MEDS ORDERED: SODIUM CHLORIDE 0.9% 100 ML BAG ONE (13:14)
[2018-05-19] MEDS ORDERED: MORPHINE SULFATE (PF) 0.3 MG/0.3 ML SYR ONE (13:14)
[2018-05-19] MEDS ORDERED: MIDAZOLAM 2 MG/2 ML VIAL ONE (13:14)
[2018-05-19] MEDS ORDERED: PROPOFOL 10 MG/ML 20 ML VIAL IV ONE (13:14)
[2018-05-19] MEDS ORDERED: TRANEXAMIC ACID 1,000 MG/10 ML VIAL ONE (13:14)
[2018-05-19] MEDS ORDERED: diphenhydrAMINE 50 MG/ML 1 ML VIAL IVP PRN (14:02)
[2018-05-19] MEDS ORDERED: NALBUPHINE 10 MG/ML (1 ML AMP) IV PRN (14:02)
--- NOTE | 2018-05-19 15:37 | OP ---
OPERATIVE REPORT PROCEDURE DATE: 05/19/2018 SURGEON: Wang Kwan MD LOCKER ROOM CLERK: MANJIT Diaz. PREOPERATIVE DIAGNOSIS: Left knee osteoarthrosis. POSTOPERATIVE DIAGNOSIS: Left knee osteoarthrosis. OPERATION: Left total knee arthroplasty. ANESTHESIA: Spinal sedation. ESTIMATED BLOOD LOSS: 100 mL. TOURNIQUET TIME: 52 minutes at 250 mmHg. COMPLICATIONS: None apparent. DRAINS: None. DISPOSITION: Postanesthesia care unit. INDICATIONS: Ab is a very pleasant 72-year-old male with longstanding history of left knee pain. History and physical examination are consistent with advanced left knee osteoarthrosis. He has been through significant nonoperative management up to this point. Further treatment options were discussed and he has decided to go forward with a left total knee arthroplasty. The risks of procedure were discussed with him in detail. These risks include, but are not limited to risk of infection, nerve damage, bleeding, pain, and a small risk of deep vein thrombosis which could lead to fatal pulmonary embolism. There is also risk of loosening of the implant which could require revision operation. The patient understands these risks. All of his questions were answered to his satisfaction. Appropriate informed consent was obtained. DESCRIPTION OF THE PROCEDURE: The patient was identified in the preoperative holding area. Surgical sites marked by both the patient and myself. He was given 2 g of Ancef IV for prophylactic purposes. He was then transferred to the operative suite. He was placed supine on the operative table. Spinal anesthetic was administered, dosed per the Anesthesia Department without apparent complication. Examination under anesthesia was then performed. The patient was 2 to 3 degrees shy of full extension. He had 100 degrees of flexion and the medial collateral ligament, lateral collateral ligament and posterior cruciate ligaments were stable. Tourniquet was then placed high on the left upper thigh well-padded in preparation for surgery. The patient's left lower extremity was then prepped and draped in usual sterile fashion. Standard surgical pause undertaken to ensure that we were operating the correct site and that appropriate preoperative antibiotics were given. All staff in the room were in agreement and we proceeded. The outlines of the patella were marked with surgical pen. A planned 12 cm vertical incision centered over the patella was marked with a surgical pen. Leg was then exsanguinated with an Esmarch dressing. The knee was then flexed and the tourniquet was inflated to 250 mmHg. The total tourniquet time for the procedure was 52 minutes Incision was then made with a 10 blade scalpel. Dissection was carried down sharply to the overlying fascia. Great care was taken to minimize the skin flaps. The knee was then exposed using a standard medial parapatellar approach. A small cuff of quadriceps tendon was then left for suturing. He was in a bit of varus preoperatively. A standard medial release was then made. Superficial medial collateral ligament was dissected off the bone around to the posterior aspect of the proximal tibia. The medial meniscus was then excised as well. The lateral meniscus was also released anteriorly. The leg was then externally rotated. The patella was everted. The knee was flexed. The retractors were then placed to protect the collateral ligaments. I then proceeded to remove the infrapatellar fat pad. This was excised sharply tangentially with the fibers of the patellar tendon. I then proceeded to remove peripheral osteophytes. This was done with a rongeur. I then proceeded with the distal femoral resection. He did have near full extension. A planned 9 mm resection was then done. The femoral canal was then entered in the midline of the femur approximately 10 mm anterior to the origin of the posterior cruciate ligament. The ne was then advanced down the center of the femur and placed intramedullary. Based on the preoperative radiographs, the angle between the anatomic and mechanical axis of the femur was approximately 4-5 degrees. The valgus angle of the distal femoral cutting guide was then set at 4 degrees for the left knee. The distal femoral cutting guide was then advanced over the intramedullary ne. This was seated firmly against the femur. I then as mentioned planned to take 9 mm off the distal femur. The cutting block was then secured to the femur with pins. The jig was removed. The distal femoral cut was made through the slot of the block. The pins were then removed and the distal femoral cutting block was removed. The accuracy of the distal femoral cuts was checked with 2 flat bars. I then proceeded with the femoral sizing. The posterior referencing sizing guide was held firmly against the resected distal surface of the femur. The posterior condyles were resting on the posterior plane of the guide. The sizing stylus was then placed onto the anterior femur. The size was measured as a size 9. I then assessed for femoral rotation. The plan was for 3 degrees of external rotation. Three degrees of external rotation was placed onto the jig. These holes were then marked. I then confirmed the rotation by 3 separate methods. This done using epicondylar axis as well as Whitesides line and posterior referencing. It was deemed that the external rotation was proper. I then went forward with placing the femoral cutting block. This was placed over the previously placed pin holes. The Joseph wing was then placed onto the anterior slots to ensure that we would not notch the anterior femur with the anterior femoral cut. I then proceeded with the anterior femoral cut. This was flush with the anterior cortex of the femur. The posterior cuts were then made followed by the anterior chamfer cut, then the posterior chamfer cut. The cutting block was then removed. Throughout the resection, the collateral ligaments were protected with retractors. I then placed a trial size 9 femur. It fit very nice mediolateral and fit flush with the distal end of the femur. The drill holes were then made. I then proceeded with the tibial cut. I planned for cruciate retaining knee. The guide was placed and set for varus valgus and for slope. The height was set for approximate 2 mm resection from the medial tibial plateau which was the lower side. I was happy with the alignment and the amount of resection. The cutting block was then pinned to the proximal tibia. The alignment ne was removed and the proximal tibia was resected with a reciprocating saw. Again this was done with retractors protecting the collateral ligaments as well as the posterior cruciate ligament. I then proceeded to evaluate the flexion and extension gaps. A 10 mm block was placed. The flexion and extension gaps were equal. I then proceeded to resection of the posterior osteophytes. Very minimal posterior osteophytes. This was done using a curved osteotome. This resected the posterior osteophytes and posterior capsule stripping was also done off the posterior aspect of the femur at this time. The osteophytes were removed. I then proceeded with resection of patella. The thickness of patella was measured using the caliper. The thickness was 25 mm. The thickness of the anticipated patellar dome was taken into account. The resection was then performed and confirmed to be equal in 4 quadrants using a caliper. Approximately 14 mm of bone remained after the resection. A 35 x 8.5 mm standard patellar trial was then placed. The holes were drilled and the trial was then placed. I then proceeded with sizing the tibial plate. A size F tibial plate fit very nicely. I then placed the trial femur the tibial tray and patellar button. A 10 mm trial insert was also placed. The components fit very nicely. He had full extension and flexion. The extension and flexion gaps were equal and stable to both varus and valgus stress. The patella tracked appropriately. The tibial tray rotation was then marked with a Bovie. This was externally rotated properly. I then proceeded with tibial preparation. First drilled the femoral holes and removed femoral component. The tibial tray was then set for proper external rotation as well as mediolateral placement onto the tibia. It was then pinned into place. I then proceed with punching the keel. I then decided to proceed with cementing of all of our components. The knee was thoroughly irrigated with sterile saline solution via pulse lavage. The lateral geniculate artery was identified and cauterized. All blood was removed from the bone of the tibia, femur and patella with pulse lavage. I then proceeded with cementing. Two packs of antibiotic bone cement were prepared on the back table by the tattoo technician. I then proceeded with cementing the tibia first. The cement was impacted into the keel as well as deeply seated in the bone. A second coat of cement was then placed. The tibia was then impacted into place. Excess cement was removed with Parker's and Joker's I then proceeded with cementing the femoral component. The femoral component was also cemented using standard technique. Excess cement was removed. A 10 mm trial insert was then placed into the knee. It was brought into full extension with a constant axial load placed until the cement had hardened. The patellar component was then cemented. This was held firmly with a compressive device until the cement had dried. When the cement had dried, the knee was taken out of extension. All excess cement was removed from around the prosthesis. I then trialed the knee with a 10 mm insert. The flexion-extension gaps were appropriate. I decided the knee was stable. It came into full extension. I decided to go forward with a 10 mm cross-linked cruciate-retaining tibial insert. Polyethylene was then placed onto the tray and locked into place. The knee was then reduced. The knee was again further irrigated with sterile saline solution with antibiotic added. The tourniquet was then deflated. The total tourniquet time for the procedure was 52 minutes at 250 mmHg. Final components were Elio Persona size 9, cruciate-retaining femoral component, size F tibial tray, a 10 mm medial congruent cruciate-retaining polyethylene insert and a 35 x 8.5 mm patella. I then proceeded with closure. Again, the knee was thoroughly irrigated. The quadriceps tendon and the medial retinaculum were reapproximated with #2 Ethibond suture. The extensor mechanism was then closed with a running #2 Quill suture. Subcutaneous tissues were then closed with 2-0 Vicryl interrupted suture. The skin was closed with a running 3-0 Quill suture. Dermabond was applied to the incision. Sterile compressive dressings were then applied. All sponge and needle counts were deemed correct prior to closure. The patient tolerated the procedure without apparent complication. He was transferred to recovery room in stable condition. MMODL / IJN: [id number] /
--- NOTE | 2018-05-19 15:55 | XR ---
Limited left knee HISTORY: Postop knee arthroplasty 2 views of the left knee No comparisons Patient is status post left knee arthroplasty. There is anatomic alignment. Lucency in the soft tissu es is compatible with postop state. IMPRESSION: Orthopedic follow-up.
[2018-05-19] MEDS: ONDANSETRON 4 MG/2 ML VIAL IVP PRN (19:04)
[2018-05-19] MEDS: SENNOSIDES-DOCUSATE SODIUM 1 EACH TAB PO SCH (21:03)
[2018-05-19] MEDS: ASPIRIN 325 MG TAB PO SCH (21:03)
[2018-05-19] MEDS: ATORVASTATIN 10 MG TAB PO SCH (21:03)
[2018-05-19] MEDS: CYCLOBENZAPRINE 10 MG TAB PO SCH (21:03)
[2018-05-19] MEDS: ceFAZolin IN SWFI 2 GM/20 ML SYRINGE IVP SCH (21:04)
[2018-05-19] MEDS: PANTOPRAZOLE 40 MG TABLET PO SCH (21:08)
[2018-05-19] MEDS ORDERED: ARTIFICIAL TEARS-HYPROMELLOSE DROPS 15 ML BTL BOTH EYES PRN (21:43)
--- NOTE | 2018-05-19 23:41 | CONS ---
CONSULTATION DATE OF CONSULTATION: 05/19/2018 REASON FOR CONSULTATION: Medical management requested by Dr. Kwan. CONSULTATION: This is a pleasant 72-year-old patient of Dr. Romero. The patient has undergone left total knee arthroplasty. Pain is controlled. Slight nausea. Chronic stable medical conditions include GERD, osteoarthritis, especially of the hips, obstructive sleep apnea, uses CPAP machine, and dry eyes, for which he takes [id number] eyedrops. No chest pain or shortness of breath. Did tolerate a light meal. REVIEW OF SYSTEMS: CONSTITUTIONAL: None. HEENT: Dry eyes. RESPIRATORY: None. CARDIOVASCULAR: None. GASTROINTESTINAL: Heartburn. GENITOURINARY: None. MUSCULOSKELETAL: Arthritic pain in the hips. DERMATOLOGICAL: None. HEMATOLOGIC: None. LYMPHATICS: None. PSYCHIATRY: None. NEUROLOGICAL: None. PAST MEDICAL HISTORY: 1. GERD. 2. Osteoarthritis. 3. Obstructive sleep apnea. Uses CPAP machine. 4. Prostate cancer, treated with surgery. PAST SURGICAL HISTORY: 1. Back surgery. 2. Hernia repair. 3. Prostate surgery. 4. Injury to the right hand with multiple fractured bones and joint replacement. 5. Partial amputation of right index finger. 6. Lumbar surgery. 7. Lithotripsy. 8. Bilateral cataracts. SOCIAL HISTORY: Smoked 2 packs a day for about 35 years. Stopped in 2001. . Patient works with [employer]. No alcohol. FAMILY HISTORY: Cancer, type unknown. HOME MEDICATIONS: 1. Zocor 20 mg at bedtime. 2. Omeprazole 20 mg b.i.d. 3. Centrum Silver 1 tablet p.o. daily. 4. Lipoflavonide 1 tablet p.o. daily. 5. Flonase 1 dose nasally daily. 6. Voltaren 75 mg p.o. b.i.d. 7. Flexeril 10 mg at bedtime. ALLERGIES: NONE. PHYSICAL EXAMINATION: Temperature 97.5, pulse 87, respiration 16, blood pressure 134/75, pulse ox 93% on room air. GENERAL APPEARANCE: Average build. Sitting up. Comfortable. EYES: Pupils equal. Conjunctivae normal. HEENT: External appearance of nose and ears normal. Oral cavity normal. NECK: JVD not raised. Mass not palpable. RESPIRATORY: Effort normal. LUNGS: Fair air entry. CARDIOVASCULAR: First and second sounds normal. No edema. ABDOMEN: Soft, non-tender. Liver and spleen not palpable. LYMPHATIC: No lymph node palpable in neck or axillae. PSYCHIATRY: Alert and oriented x3. Mood and affect normal. NEUROLOGICAL: Pupils equal. Cranial nerves grossly intact. Power and sensation grossly intact. MUSCULOSKELETAL: Dressing over the left knee. INVESTIGATIONS: No blood work. ASSESSMENT: 1. Left total knee arthroplasty. 2. Gastroesophageal reflux disease. 3. Primary osteoarthritis. 4. Obstructive sleep apnea. Uses CPAP machine. 5. Dry eyes. Uses local eyedrops. PLAN: Home medications are resumed. Patient is getting aspirin 325 twice a day for DVT prophylaxis. Eye drops will be ordered. Care was discussed with the patient. Questions were answered. Thank you, Dr. Kwan. JAMI / SOLANGEN: [id number] /
[2018-05-20] MEDS: ceFAZolin IN SWFI 2 GM/20 ML SYRINGE IVP SCH (05:13)
[2018-05-20] MEDS: ONDANSETRON 4 MG/2 ML VIAL IVP PRN (05:45)
[2018-05-20] MEDS: LACTATED RINGERS 1,000 ML IV SCH ×3 (07:57→14:41)
[2018-05-20] MEDS: ASPIRIN 325 MG TAB PO SCH ×2 (08:01→20:12)
[2018-05-20] MEDS: PANTOPRAZOLE 40 MG TABLET PO SCH (08:01)
[2018-05-20] MEDS: MULTIVITAMINS, THERA 1 EACH TAB PO SCH (08:07)
[2018-05-20 08:40] LABS: Basophils % (A) 0 %; Eosinophils % (A) 0 %; HGB 13.3 gm/dL (13.0-17.5); Lymphocytes # (A) 1.1 k/uL (1.0-4.8); Lymphocytes % (A) 10 %; MCH 28.6 pg (25.0-35.0); MCHC 31.6 g/dL (31.0-37.0); MCV 90.5 fL (80.0-100.0); Mean Platelet Volume 6.3; Monocytes # (A) 0.5 k/uL (0-1.0); Monocytes % (A) 5 %; Neutrophils # (A) 9.4 k/uL (1.3-7.7); Neutrophils % (A) 84 %; Platelet Count 255 k/uL (150-450); RBC 4.64 m/uL (4.30-5.90); RDW 13.5 % (11.5-15.5); WBC 11.3 k/uL (3.8-10.6)
[2018-05-20] MEDS: HYDROcodone/APAP 10-325MG 1 EACH TAB PO PRN ×3 (08:51→18:44)
--- NOTE | 2018-05-20 09:50 | P.PN ---
Subjective Progress Note Date: 05/20/18 Principal diagnosis: Left total knee Patient is seen at bedside this morning. He is postop day #1 from left total knee arthroplasty.. He has pain at the surgical site as expected but denies any new complaints. He denies numbness, tingling or calf pain. Review of systems is negative for fever, chills, chest pain, shortness of breath or other Objective - Vital Signs Vital signs: Vital Signs Temp 97.9 F 05/20/18 07:00 Pulse 72 05/20/18 07:00 Resp 17 05/20/18 07:07 BP 118/69 05/20/18 07:00 Pulse Ox 94 L 05/20/18 07:00 Intake & Output 05/19/18 05/20/18 05/20/18 18:59 06:59 18:59 Intake Total 975 1790 Output Total 100 200 Balance 875 1590 Intake: IV 975 Intake, IV Titration 1000 Amount Lactated Ringers 1,000 ml 1000 @ 100 mls/hr IV .Q10H ANTHONY Rx#:[id number] Oral 790 Output: Emesis 200 Estimated Blood Loss 100 Other: Voiding Method Toilet Diaper # Voids 2 1 - Exam Inspection reveals a benign surgical wound. There is no active bleeding or drainage. Neurovascular status is intact throughout the lower extremity with motor and sensation fully intact. Calf is soft and nontender. 2+ dorsalis pedis pulse and less than 2 second cap refill is present. - Constitutional General appearance: Present: no acute distress - Labs CBC & Chem 7: 05/20/18 07:51 Labs: Abnormal Lab Results - Last 24 Hours (Table) 05/20/18 Range/Units 07:51 WBC 11.3 H (3.8-10.6) k/uL Neutrophils # 9.4 H (1.3-7.7) k/uL Assessment and Plan (1) Osteoarthritis of left knee Narrative/Plan: He will continue with routine postop orthopedic protocol including pain management, wound care, PT, DVT prophylaxis and medical management. Expect that he will transfer to home tomorrow Current Visit: Yes Status: Acute Priority: Medium Code(s): M17.12 - UNILATERAL PRIMARY OSTEOARTHRITIS, LEFT KNEE SNOMED Code(s): 345810668001820 (2) Status post total left knee replacement Current Visit: Yes Status: Acute Priority: Medium Code(s): Z96.652 - PRESENCE OF LEFT ARTIFICIAL KNEE JOINT SNOMED Code(s): 9071535029129 (3) Malignant neoplasm of prostate Current Visit: No Status: Acute Priority: Medium Code(s): C61 - MALIGNANT NEOPLASM OF PROSTATE SNOMED Code(s): 193870046 Time with Patient: Less than 30
[2018-05-20] MEDS ORDERED: HYDROmorphone 2 MG TAB PO PRN ×3 (11:57→11:59)
--- NOTE | 2018-05-20 12:20 | P.PN ---
Progress Note - Text Anesthesia POD 1. Patient is status post left TKR under spinal anesthesia with intra-thecal preservative free morphine 300 g. Moderate pruritus, good post- op analgesia, and some nausea now resolving.
[2018-05-20] MEDS: ATORVASTATIN 10 MG TAB PO SCH (20:11)
[2018-05-20] MEDS: SENNOSIDES-DOCUSATE SODIUM 1 EACH TAB PO SCH (20:12)
[2018-05-20] MEDS: CYCLOBENZAPRINE 10 MG TAB PO SCH (20:12)
--- NOTE | 2018-05-20 22:18 | PN ---
PROGRESS NOTE DATE OF SERVICE: 05/20/2018 PRESENTING COMPLAINT: Left total knee arthroplasty. INTERVAL HISTORY: Patient is status post left total knee arthroplasty. Some pain is present. Overall doing better. Did tolerate some diet. Did work with therapy. is present. REVIEW OF SYSTEMS: Done for constitutional, cardiovascular, GI, pulmonary; relevant findings as above. CURRENT MEDICATIONS: Reviewed. PHYSICAL EXAMINATION: Temperature 98.6, pulse 93, respiration 12, blood pressure 118/70, pulse ox 97%. GENERAL APPEARANCE: Lying in bed, comfortable. EYES: Pupils equal. Conjunctivae normal. NECK: JVD not raised. Mass not palpable. RESPIRATORY: Effort normal. Lungs are clear. CARDIOVASCULAR: First and second sounds normal. No edema. ABDOMEN: Soft, non-tender. Liver and spleen not palpable. PSYCHIATRY: Alert and oriented x3. Mood and affect normal. INVESTIGATIONS: White count 11.3, hemoglobin 13.3. ASSESSMENT: 1. Left total knee arthroplasty. 2. Gastroesophageal reflux disease. 3. Primary osteoarthritis. 4. Obstructive sleep apnea. Uses CPAP machine. 5. Dry eyes. PLAN: Continue current medication and treatment plan. MMODL / IJN: [id number] /
[2018-05-21] MEDS: HYDROcodone/APAP 10-325MG 1 EACH TAB PO PRN ×4 (00:17→20:13)
[2018-05-21] MEDS: LACTATED RINGERS 1,000 ML IV SCH ×3 (05:31→13:36)
[2018-05-21] MEDS: PANTOPRAZOLE 40 MG TABLET PO SCH (09:19)
[2018-05-21] MEDS: ASPIRIN 325 MG TAB PO SCH ×2 (09:19→20:13)
[2018-05-21] MEDS: MULTIVITAMINS, THERA 1 EACH TAB PO SCH (09:20)
[2018-05-21] MEDS: traMADol 50 MG TAB PO PRN (09:26)
--- NOTE | 2018-05-21 09:52 | P.PN ---
Subjective Progress Note Date: 05/21/18 Principal diagnosis: Left total knee Patient is seen at bedside this morning. He is postop day #2 from left total knee arthroplasty.. He has pain at the surgical site as expected but denies any new complaints. He denies numbness, tingling or calf pain. Review of systems is negative for fever, chills, chest pain, shortness of breath or other Objective - Vital Signs Vital signs: Vital Signs Temp 99.1 F 05/21/18 07:11 Pulse 92 05/21/18 07:11 Resp 16 05/21/18 07:11 BP 119/58 05/21/18 07:11 Pulse Ox 93 L 05/21/18 07:11 Intake & Output 05/20/18 05/21/18 05/21/18 18:59 06:59 18:59 Intake Total 600 296 Balance 600 296 Intake: Oral 600 296 Other: Voiding Method Toilet Toilet Diaper Diaper # Voids 1 2 - Exam Inspection reveals a benign surgical wound. There is no active bleeding or drainage. Neurovascular status is intact throughout the lower extremity with motor and sensation fully intact. Calf is soft and nontender. 2+ dorsalis pedis pulse and less than 2 second cap refill is present. - Constitutional General appearance: Present: no acute distress - Labs CBC & Chem 7: 05/20/18 07:51 Assessment and Plan (1) Osteoarthritis of left knee Narrative/Plan: He will continue with routine postop orthopedic protocol including pain management, wound care, PT, DVT prophylaxis and medical management. Expect that he will transfer to home tomorrow Current Visit: Yes Status: Acute Priority: Medium Code(s): M17.12 - UNILATERAL PRIMARY OSTEOARTHRITIS, LEFT KNEE SNOMED Code(s): 604481009552200 (2) Status post total left knee replacement Current Visit: Yes Status: Acute Priority: Medium Code(s): Z96.652 - PRESENCE OF LEFT ARTIFICIAL KNEE JOINT SNOMED Code(s): 2037623029674 (3) Malignant neoplasm of prostate Current Visit: No Status: Acute Priority: Medium Code(s): C61 - MALIGNANT NEOPLASM OF PROSTATE SNOMED Code(s): 920574443
[2018-05-21] MEDS: oxyCODONE ER 10 MG TAB.ER.12H PO SCH ×2 (11:28→22:52)
[2018-05-21] MEDS: SENNOSIDES-DOCUSATE SODIUM 1 EACH TAB PO SCH (20:13)
[2018-05-21] MEDS: CYCLOBENZAPRINE 10 MG TAB PO SCH (20:13)
[2018-05-21] MEDS: ATORVASTATIN 10 MG TAB PO SCH (20:13)
--- NOTE | 2018-05-21 23:04 | PN ---
PROGRESS NOTE DATE OF SERVICE: 05/21/2018. PRESENTING COMPLAINT: Left total knee arthroplasty. INTERVAL HISTORY: I saw this patient this afternoon, having some more pain, feeling tired, not much of an appetite, slight nausea, lying in bed. is present. REVIEW OF SYSTEMS: Done for constitutional, cardiovascular, GI, pulmonary, musculoskeletal; relevant findings as above. MEDICATIONS: Current medications are reviewed. PHYSICAL EXAMINATION: Temperature 98, pulse 38, respirations 16, blood pressure 117/67, pulse ox 93% on room air. GENERAL APPEARANCE: Lying in bed, tired-appearing. EYES: Pupils equal. Conjunctivae normal. NECK: JVD not raised. Mass not palpable. Respiratory effort normal. LUNGS: Lungs are clear. CARDIOVASCULAR: 1st and 2nd sounds. No edema. ABDOMEN: Soft, nontender. Liver and spleen not palpable. PSYCHIATRY: Alert, oriented x3. Mood and affect tired-appearing. MUSCULOSKELETAL: Dressing of the left knee. Minimal edema if any of the left leg. INVESTIGATIONS: No blood work from today. ASSESSMENT: 1. Left total knee arthroplasty. 2. Gastroesophageal reflux disease. 3. Primary osteoarthritis. 4. Obstructive sleep apnea, uses CPAP machine. 5. Dry eyes. PLAN: Continue current medication and treatment plan. We will check labs in the morning. Encouraged patient to be out of bed. No fever. MMODL / IJN: [id number] /
[2018-05-22] MEDS: LACTATED RINGERS 1,000 ML IV SCH ×4 (00:20→23:12)
[2018-05-22] MEDS: HYDROcodone/APAP 10-325MG 1 EACH TAB PO PRN ×2 (04:44→12:14)
[2018-05-22] MEDS: traMADol 50 MG TAB PO PRN ×2 (07:00→22:14)
[2018-05-22] MEDS: oxyCODONE ER 10 MG TAB.ER.12H PO SCH ×2 (08:17→21:24)
[2018-05-22] MEDS: ASPIRIN 325 MG TAB PO SCH ×2 (08:17→21:24)
[2018-05-22] MEDS: PANTOPRAZOLE 40 MG TABLET PO SCH (08:17)
--- NOTE | 2018-05-22 08:20 | US ---
EXAMINATION TYPE: US venous doppler duplex LE LT DATE OF EXAM: 05/22/2018 7:58 AM COMPARISON: NONE CLINICAL HISTORY: r/o DVT. Left knee replacement Thursday. Pain SIDE PERFORMED: Left TECHNIQUE: The lower extremity deep venous system is examined utilizing real time linear array sonog don with graded compression, doppler sonography and color-flow sonography. VESSELS IMAGED: External Iliac Vein (EIV) Common Femoral Vein Deep Femoral Vein Greater Saphenous Vein * Femoral Vein Popliteal Vein Small Saphenous Vein * Proximal Calf Veins (* superficial vessels) No popliteal fossa lesion is seen. Left Leg: Negative for DVT IMPRESSION: THIS EXAMINATION IS NEGATIVE FOR DVT WITHIN THE LEFT LEG.
[2018-05-22 08:58] LABS: Basophils % (A) 1 %; Eosinophils # (A) 0.1 k/uL (0-0.7); Eosinophils % (A) 2 %; HCT 35.3 % (39.0-53.0); Lymphocytes # (A) 1.1 k/uL (1.0-4.8); Lymphocytes % (A) 13 %; MCH 30.8 pg (25.0-35.0); MCV 90.5 fL (80.0-100.0); Mean Platelet Volume 6.9; Monocytes # (A) 0.5 k/uL (0-1.0); Monocytes % (A) 6 %; Neutrophils # (A) 6.3 k/uL (1.3-7.7); Neutrophils % (A) 77 %; Platelet Count 205 k/uL (150-450); RDW 13.1 % (11.5-15.5); WBC 8.2 k/uL (3.8-10.6)
[2018-05-22] MEDS: MULTIVITAMINS, THERA 1 EACH TAB PO SCH (12:14)
--- NOTE | 2018-05-22 21:17 | P.PN ---
Subjective Progress Note Date: 05/22/18 Principal diagnosis: Left total knee Patient is seen at bedside this morning. He is postop day #3 from left total knee arthroplasty.. He has pain at the surgical site and thigh as expected but denies any other new complaints. He denies numbness, tingling or calf pain. Review of systems is negative for fever, chills, chest pain, shortness of breath or other Objective - Vital Signs Vital signs: Vital Signs Temp 98.2 F 05/22/18 06:59 Pulse 81 05/22/18 06:59 Resp 16 05/22/18 06:59 BP 104/62 05/22/18 06:59 Pulse Ox 95 05/22/18 06:59 Intake & Output 05/22/18 05/22/18 05/23/18 06:59 18:59 06:59 Other: # Voids 1 - Exam Inspection reveals a benign surgical wound. There is no active bleeding or drainage. There is some swelling and echymosis at the thigh. Neurovascular status is intact throughout the lower extremity with motor and sensation fully intact. Calf is soft and nontender. 2+ dorsalis pedis pulse and less than 2 second cap refill is present. - Constitutional General appearance: Present: no acute distress - Labs CBC & Chem 7: 05/22/18 08:03 Labs: Abnormal Lab Results - Last 24 Hours (Table) 05/22/18 Range/Units 08:03 RBC 3.90 L (4.30-5.90) m/uL Hgb 12.0 L (13.0-17.5) gm/dL Hct 35.3 L (39.0-53.0) % Assessment and Plan (1) Osteoarthritis of left knee Narrative/Plan: Doppler U/S of left lower extremity was negative for DVT. H ehas adequate perfusion and neurologically intact. Will continue to monitor the thigh. He will continue with routine postop orthopedic protocol including pain management , wound care, PT, DVT prophylaxis and medical management. Expect that he will transfer to home in next few days Current Visit: Yes Status: Acute Priority: Medium Code(s): M17.12 - UNILATERAL PRIMARY OSTEOARTHRITIS, LEFT KNEE SNOMED Code(s): 107830055676596 (2) Status post total left knee replacement Current Visit: Yes Status: Acute Priority: Medium Code(s): Z96.652 - PRESENCE OF LEFT ARTIFICIAL KNEE JOINT SNOMED Code(s): 4424837743889 (3) Malignant neoplasm of prostate Current Visit: No Status: Acute Priority: Medium Code(s): C61 - MALIGNANT NEOPLASM OF PROSTATE SNOMED Code(s): 656249309 Time with Patient: Less than 30
[2018-05-22] MEDS: SENNOSIDES-DOCUSATE SODIUM 1 EACH TAB PO SCH (21:24)
[2018-05-22] MEDS: ATORVASTATIN 10 MG TAB PO SCH (21:24)
[2018-05-22] MEDS: CYCLOBENZAPRINE 10 MG TAB PO SCH (21:24)
--- NOTE | 2018-05-22 21:27 | PN ---
PROGRESS NOTE DATE OF SERVICE: May 22, 2018. PRESENT COMPLAINT: Left knee surgery. INTERVAL HISTORY: Patient is status post left knee surgery, doing better today. He had some swelling. I did a Doppler ultrasound this morning. Came back negative for DVT. Feeling better. Some pain is still present. Did tolerate a diet. Did work to get out of bed with therapy. REVIEW OF SYSTEMS: Done for constitutional, cardiovascular, GI, pulmonary, musculoskeletal and relevant findings as above. CURRENT MEDICATIONS: Reviewed. PHYSICAL EXAMINATION: VITAL SIGNS: Temperature 98.2, pulse 81, respiratory rate 16. Blood pressure 104/62. Pulse ox 95% on room air. GENERAL APPEARANCE: Lying in bed, looks better today. EYES: Pupils equal. Conjunctivae normal. NECK: JVD not raised. Mass not palpable. RESPIRATORY: Effort normal. LUNGS are clear. CARDIOVASCULAR: 1st and 2nd sounds normal. Minimal edema in the left lower extremity. ABDOMEN: Soft, nontender. Liver and spleen not palpable. PSYCHIATRY: Alert and oriented x3. Mood and affect normal. INVESTIGATIONS: White count 8.2, hemoglobin 12.0. ASSESSMENT: 1. Left total knee arthroplasty. 2. Gastroesophageal reflux disease. 3. Primary osteoarthritis. 4. Obstructive sleep apnea uses CPAP machine. 5. Deep vein thrombosis to lower the left leg. PLAN: The patient is actually doing much better. Continue medication and treatment plan. Care was discussed with the patient and . MMODL / IJN: [id number] /
[2018-05-23] MEDS: HYDROcodone/APAP 10-325MG 1 EACH TAB PO PRN ×3 (01:55→14:44)
[2018-05-23] MEDS: LACTATED RINGERS 1,000 ML IV SCH ×3 (08:10→17:10)
[2018-05-23] MEDS: traMADol 50 MG TAB PO PRN ×3 (08:19→23:31)
[2018-05-23] MEDS: PANTOPRAZOLE 40 MG TABLET PO SCH (08:19)
[2018-05-23] MEDS: ASPIRIN 325 MG TAB PO SCH ×2 (08:19→21:03)
[2018-05-23] MEDS: oxyCODONE ER 10 MG TAB.ER.12H PO SCH ×2 (08:20→21:03)
[2018-05-23] MEDS: MULTIVITAMINS, THERA 1 EACH TAB PO SCH (13:01)
--- NOTE | 2018-05-23 13:08 | P.PN ---
Subjective Progress Note Date: 05/23/18 Principal diagnosis: Left total knee Patient is seen at bedside this morning. He is postop day #4 from left total knee arthroplasty.. He has pain at the surgical site and thigh with some swelling and bruising as expected but denies any other new complaints. He denies numbness, tingling or calf pain. Review of systems is negative for fever , chills, chest pain, shortness of breath or other Objective - Vital Signs Vital signs: Vital Signs Temp 98.0 F 05/23/18 08:10 Pulse 82 05/23/18 08:10 Resp 16 05/23/18 08:10 BP 136/73 05/23/18 08:10 Pulse Ox 94 L 05/23/18 08:10 Intake & Output 05/22/18 05/23/18 05/23/18 18:59 06:59 18:59 Intake Total 1090 Balance 1090 Intake: Oral 1090 Other: # Voids 2 - Exam Inspection reveals a benign surgical wound. There is no active bleeding or drainage. There is some swelling and echymosis at the left thigh that has remained stable. Neurovascular status is intact throughout the lower extremity with motor and sensation fully intact. Calf is soft and nontender. 2+ dorsalis pedis pulse and less than 2 second cap refill is present. - Constitutional General appearance: Present: no acute distress - Labs CBC & Chem 7: 05/22/18 08:03 Assessment and Plan (1) Osteoarthritis of left knee Narrative/Plan: Doppler U/S of left lower extremity was negative for DVT. He continues to have adequate perfusion and is neurologically intact distally. Will continue to monitor the thigh. He will continue with routine postop orthopedic protocol including pain management, wound care, PT, DVT prophylaxis and medical management. Expect that he will transfer to home in next few days Current Visit: Yes Status: Acute Priority: Medium Code(s): M17.12 - UNILATERAL PRIMARY OSTEOARTHRITIS, LEFT KNEE SNOMED Code(s): 616590584148010 (2) Status post total left knee replacement Current Visit: Yes Status: Acute Priority: Medium Code(s): Z96.652 - PRESENCE OF LEFT ARTIFICIAL KNEE JOINT SNOMED Code(s): 2560491873708 (3) Malignant neoplasm of prostate Current Visit: No Status: Acute Priority: Medium Code(s): C61 - MALIGNANT NEOPLASM OF PROSTATE SNOMED Code(s): 578954757
[2018-05-23] MEDS: SENNOSIDES-DOCUSATE SODIUM 1 EACH TAB PO SCH (21:04)
[2018-05-23] MEDS: CYCLOBENZAPRINE 10 MG TAB PO SCH (21:04)
[2018-05-23] MEDS: ATORVASTATIN 10 MG TAB PO SCH (21:04)
--- NOTE | 2018-05-23 22:58 | PN ---
PROGRESS NOTE DATE OF SERVICE: 05/23/2018 PRESENTING COMPLAINT: Left knee surgery. INTERVAL HISTORY: Patient is status post left knee surgery, stable. Patient has some bruising on the left eye. Doppler ultrasound was negative. Doing better, tolerating a diet. Did work with therapy. Overall feeling better. REVIEW OF SYSTEMS: Done for constitutional, cardiovascular, GI, pulmonary and findings as above. CURRENT MEDICATIONS: Reviewed. PHYSICAL EXAMINATION: Temperature 98.8, pulse 79, respirations 12, blood pressure 109/74, pulse ox 97% on room air. GENERAL APPEARANCE: Lying in bed comfortable. EYES: Pupils equal. Conjunctivae normal. NECK: JVD not raised. Mass not palpable. Respiratory effort normal. LUNGS: Clear. CARDIOVASCULAR: 1st and 2nd sounds normal. Minimal edema. ABDOMEN: Soft, nontender. Liver and spleen not palpable. PSYCHIATRY: Alert and oriented x3. Mood and affect normal. EXTREMITIES: Left knee in a dressing. INVESTIGATIONS: White count 8.2, hemoglobin 12 from yesterday. ASSESSMENT: 1. Left total knee arthroplasty. 2. Gastroesophageal reflux disease. 3. Primary osteoarthritis. 4. Obstructive sleep apnea, uses CPAP machine. 5. Deep venous thrombosis of left lower extremity ruled out. PLAN: Patient is doing well. Continue medication and treatment plan. Care was discussed the patient and . MMODL / IJN: [id number] /
[2018-05-24] MEDS: LACTATED RINGERS 1,000 ML IV SCH (01:12)
[2018-05-24] MEDS: HYDROcodone/APAP 10-325MG 1 EACH TAB PO PRN (02:49)
[2018-05-24] MEDS: traMADol 50 MG TAB PO PRN (05:44)
[2018-05-24 08:01] VITALS: BP 107/65; RESP 16; TEMP 98
[2018-05-24] MEDS: ASPIRIN 325 MG TAB PO SCH (08:02)
[2018-05-24] MEDS: oxyCODONE ER 10 MG TAB.ER.12H PO SCH (08:02)
[2018-05-24] MEDS: PANTOPRAZOLE 40 MG TABLET PO SCH (08:02)
[2018-05-24 08:58] VITALS: PULSE 83
--- NOTE | 2018-05-24 09:31 | P.DS ---
Providers Date of admission: 05/19/18 10:36 Expected date of discharge: 05/24/18 Attending physician: Wang Kwan Consults: 05/19/18 13:09 Consult Physician Routine Consulting Provider: Armani Esparza Consult Reason/Comments: post op medical management Do you want consulting provider notified?: Yes Primary care physician: Gilmer Dinheldor - Discharge Diagnosis(es) (1) Osteoarthritis of left knee Current Visit: Yes Status: Acute Priority: Medium (2) Status post total left knee replacement Patient was admitted to the OR on 05/19/2018 to undergo a left total knee arthroplasty. He had failed conservative measures as an outpatient and desired to proceed with elective surgery after given informed consent. He underwent the above procedure which he tolerated well without complication. Postoperative hospital course has remained without complication. On day of discharge he is afebrile, vital signs stable, labs within acceptable ranges, tolerating by mouth meds and diet, voiding without difficulty, positive flatus, denies abdominal pain or calf pain, pain is controlled on oral pain medication and has no new complaints. Wound is benign, neurovascular status is intact, calf is soft and nontender, abdomen soft and nontender. Review of systems is negative for numbness, tingling, fever, chills, chest pain, shortness breath, nausea, vomiting, dizziness, headaches, slurred speech or other. Current Visit: Yes Status: Acute Priority: Medium (3) Malignant neoplasm of prostate Current Visit: No Status: Acute Priority: Medium Patient Condition at Discharge: Good Plan - Discharge Summary Discharge Rx Participant: Yes New Discharge Prescriptions: New Aspirin 325 mg PO BID #60 tab Docusate [Colace] 100 mg PO BID #60 capsule HYDROcodone/APAP 10-325MG [[place] 10-325] 1 tab PO Q4HR PRN #42 tab PRN Reason: Pain oxyCODONE HCL [oxyCODONE HCL ER] 15 mg PO Q12H 3 Days #6 tab No Action Omeprazole 20 mg PO BID Fluticasone Nasal [place] [Flonase Nasal [place]] 1 dose NASAL DAILY Diclofenac Sodium [Voltaren] 75 mg PO BID Cyclobenzaprine [Flexeril] 10 mg PO HS Multivit-Min/FA/Lycopen/Lutein [Centrum Silver Men Tablet] 1 each PO DAILY Simvastatin [Zocor] 20 mg PO HS Lipoflavonide 1 tab PO DAILY Discharge Medication List Cyclobenzaprine [Flexeril] 10 mg PO HS 04/13/17 [History] Diclofenac Sodium [Voltaren] 75 mg PO BID 04/13/17 [History] Fluticasone Nasal [place] [Flonase Nasal [place]] 1 dose NASAL DAILY 04/13/17 [ History] Omeprazole 20 mg PO BID 04/13/17 [History] Multivit-Min/FA/Lycopen/Lutein [Centrum Silver Men Tablet] 1 each PO DAILY 02/10 [History] Lipoflavonide 1 tab PO DAILY 05/14/18 [History] Simvastatin [Zocor] 20 mg PO HS 05/14/18 [History] Aspirin 325 mg PO BID #60 tab 05/24/18 [Rx] Docusate [Colace] 100 mg PO BID #60 capsule 05/24/18 [Rx] HYDROcodone/APAP 10-325MG [[place] 10-325] 1 tab PO Q4HR PRN #42 tab 05/24/18 [Rx] oxyCODONE HCL [oxyCODONE HCL ER] 15 mg PO Q12H 3 Days #6 tab 05/24/18 [Rx] Follow up Appointment(s)/Referral(s): [facility], [NON-STAFF] - Wang Kwan MD [STAFF PHYSICIAN] - 10 Days Activity/Diet/Wound Care/Special Instructions: Keep wound clean and dry Take meds as directed Follow-up with Dr. Kwan in office Weight bear as tolerated May shower in 3 days if no bleeding Discharge Disposition: HOME WITH HOME HEALTH SERVICES
== END 2018-05-24 11:18 | disposition home health service (06) | DRG 470 ==
LOC: 2ORMAIN 05-19 10:36 → 4SSUR 05-19 15:18
PROVIDERS: ADMIT Orthopaedic Surgery Sports Medicine; ATTEND Orthopaedic Surgery Sports Medicine
PROC: 0SRD0J9 Replacement of Left Knee Joint with Synthetic Substitute, Cemented, Open Approach (ICD-10-PCS; principal; 2018-05-19 12:30)
DX: M17.12 Unilateral primary osteoarthritis, left knee (principal); B02.29 Other postherpetic nervous system involvement; G25.81 Restless legs syndrome; K21.0 Gastro-esophageal reflux disease with esophagitis; M19.042 Primary osteoarthritis, left hand; M19.041 Primary osteoarthritis, right hand; E78.5 Hyperlipidemia, unspecified; E55.9 Vitamin D deficiency, unspecified; G47.33 Obstructive sleep apnea (adult) (pediatric); H04.123 Dry eye syndrome of bilateral lacrimal glands; L13.0 Dermatitis herpetiformis; B35.1 Tinea unguium; M16.0 Bilateral primary osteoarthritis of hip; Z68.28 Body mass index [BMI] 28.0-28.9, adult; Z87.891 Personal history of nicotine dependence; Z79.899 Other long term (current) drug therapy; Z87.898 Personal history of other specified conditions; Z85.46 Personal history of malignant neoplasm of prostate; Z89.021 Acquired absence of right finger(s); Z99.89 Dependence on other enabling machines and devices; Z98.42 Cataract extraction status, left eye; Z98.41 Cataract extraction status, right eye
CPT/HCPCS: 85025; 88305; 88311

== ENCOUNTER → 2018-06-22 | Outpatient (CLI) | payer MEDICARE, BC | END | disposition home or self-care (01) | LOC: LABWHC1 07:14 | PROVIDERS: ATTEND Urology | DX: C61 Malignant neoplasm of prostate (principal) | CPT/HCPCS: 36415; 84153 ==

== ENCOUNTER → 2018-10-29 | Outpatient (CLI) | payer MEDICARE, BC | END | disposition home or self-care (01) | LOC: LABWHC1 08:14 | PROVIDERS: ATTEND Urology | DX: C61 Malignant neoplasm of prostate (principal) | CPT/HCPCS: 36415; 84153 ==

== ENCOUNTER → 2019-01-22 | Outpatient (CLI) | payer MEDICARE, BC | END | disposition home or self-care (01) | LOC: LABWHC1 08:13 | PROVIDERS: ATTEND Urology | DX: C61 Malignant neoplasm of prostate (principal) | CPT/HCPCS: 36415; 84153 ==

== ENCOUNTER → 2019-05-10 | Outpatient (CLI) | payer MEDICARE, BC ==
[2019-05-10 15:39] LABS: Appearance,Urine Clear (Clear); Bilirubin,Urine Negative (Negative); Blood,Urine Negative (Negative); Color,Urine Yellow; Glucose,Urine (UA) Negative (Negative); Ketones,Urine Negative (Negative); Leukocyte Esterase,Urine Negative (Negative); Nitrite,Urine Negative (Negative); PH, Urine 5.5 (5.0-8.0); Protein,Urine Trace (Negative); Specific Gravity,Urine 1.032 (1.001-1.035)
[2019-05-10 15:43] LABS: HCT 46.1 % (39.0-53.0); HGB 15.2 gm/dL (13.0-17.5); MCH 29.2 pg (25.0-35.0); MCHC 33.1 g/dL (31.0-37.0); MCV 88.3 fL (80.0-100.0); Mean Platelet Volume 7.3; Platelet Count 303 k/uL (150-450); RBC 5.23 m/uL (4.30-5.90); RDW 13.2 % (11.5-15.5); WBC 9.4 k/uL (3.8-10.6)
[2019-05-10 15:51] LABS: Albumin 4.1 g/dL (3.5-5.0); Calcium 9.4 mg/dL (8.4-10.2); INR 0.9 (<1.2); Partial Thromboplastin Time 24.6 sec (22.0-30.0); Potassium 4.6 mmol/L (3.5-5.1); Prothrombin Time 9.5 sec (9.0-12.0); Total Bilirubin 0.6 mg/dL (0.2-1.3); Total Protein 6.9 g/dL (6.3-8.2)
== END | disposition home or self-care (01) ==
LOC: LABPAT 14:37
PROVIDERS: ATTEND Orthopaedic Surgery Sports Medicine
DX: Z01.812 Encounter for preprocedural laboratory examination (principal); M19.012 Primary osteoarthritis, left shoulder; Z51.81 Encounter for therapeutic drug level monitoring
CPT/HCPCS: 36415; 80053; 81003; 85027; 85610; 85730; 87070

== ENCOUNTER 2019-05-25 15:20 | Inpatient (IN) | payer MEDICARE, BC ==
[2019-05-18 12:03] VITALS: BMI 28.6
[~2019-05-25 15:20] MED LIST changes: -DEXAMETHASONE SOD PHOSPHATE 10 MG/ML 1 ML VIAL IV ONE; -HYDROmorphone 1 MG/ML 1 ML SYRINGE IVP PRN; +LIDOCAINE 1% 20 ML VIAL (10MG/ML) FOR IV START INTRADERMA PRN; -SCOPOLAMINE 1.5MG/72HR PATCH TRANSDERM ONE; +TRANEXAMIC ACID 1,000 MG in SODIUM CHLORIDE 0.9% 100 ML IVPB ONE; -ceFAZolin IN SWFI 2 GM/20 ML SYRINGE IVP ONE; +fentaNYL (PF) 50 MCG/ML 2 ML AMP IVP PRN
[2019-05-25 16:12] LABS: Glucose,Whole Blood 76 mg/dL (75-99)
[2019-05-25] MEDS: LACTATED RINGERS 1,000 ML IV SCH ×2 (16:12→23:01)
[2019-05-25] MEDS: DEXAMETHASONE SOD PHOSPHATE 10 MG/ML 1 ML VIAL IV ONE ×2 (16:28→23:00)
[2019-05-25] MEDS: ONDANSETRON 4 MG/2 ML VIAL IVP ONE ×2 (16:29→23:00)
[2019-05-25] MEDS: MELOXICAM 7.5 MG TAB PO ONE ×2 (16:31→22:59)
[2019-05-25] MEDS: GABAPENTIN 300 MG CAP PO ONE ×2 (16:31→22:59)
[2019-05-25] MEDS: ACETAMINOPHEN TAB 500 MG TAB PO ONE ×2 (16:31→22:59)
[2019-05-25] MEDS ORDERED: HYDROmorphone 0.5 MG/0.5 ML SYRINGE IVP PRN ×2 (17:15)
[2019-05-25] MEDS ORDERED: ONDANSETRON 4 MG/2 ML VIAL IVP PRN (17:15)
[2019-05-25] MEDS ORDERED: METOCLOPRAMIDE 5 MG/ML 2 ML VIAL IVP PRN (17:15)
[2019-05-25] MEDS ORDERED: SENNOSIDES-DOCUSATE SODIUM 1 EACH TAB PO PRN (17:15)
[2019-05-25] MEDS ORDERED: HYDROcodone/APAP 5-325MG 1 EACH TAB PO PRN (17:15)
[2019-05-25] MEDS ORDERED: HYDROmorphone (PF) 1 MG/ML ONE (17:23)
[2019-05-25] MEDS ORDERED: BUPIVACAIN-EPI 0.25%-1:200,000 30 ML VIAL ONE (17:23)
[2019-05-25] MEDS ORDERED: MIDAZOLAM 2 MG/2 ML VIAL ONE (17:23)
[2019-05-25] MEDS ORDERED: SODIUM CHLORIDE 0.9% 100 ML BAG ONE (17:23)
[2019-05-25] MEDS ORDERED: LIDOCAINE 1% INJ 10MG/ML (20 ML MDV) ONE (17:23)
[2019-05-25] MEDS ORDERED: fentaNYL (PF) 50 MCG/ML 2 ML AMP ONE (17:23)
[2019-05-25] MEDS ORDERED: TRANEXAMIC ACID 1,000 MG/10 ML VIAL ONE (17:23)
[2019-05-25] MEDS ORDERED: PROPOFOL 10 MG/ML 20 ML VIAL IV ONE (17:23)
[2019-05-25] MEDS ORDERED: NEOSTIGMINE 1 MG/ML 10 ML VIAL ONE (17:23)
[2019-05-25] MEDS ORDERED: ePHEDrine SULFATE/0.9% NACL/PF 50 MG/5 ML SYRINGE IV ONE (17:23)
[2019-05-25] MEDS ORDERED: GLYCOPYRROLATE 0.2 MG/ML 2 ML VIAL ONE (17:23)
[2019-05-25] MEDS ORDERED: SUCCINYLCHOLINE CHLORIDE 100 MG/5 ML SYR IV ONE (17:23)
[2019-05-25] MEDS ORDERED: ROCURONIUM BROMIDE 10 MG/ML 10 ML VIAL IV ONE (17:23)
[2019-05-25] MEDS ORDERED: PHENYLEPHRINE-0.9% NACL SYG 1 MG/10 ML SYRINGE ONE (17:23)
[2019-05-25] MEDS: ROPIVACAINE 246.25 MG, EPINEPHrine 0.5 MG, KETOROLAC 30 MG, cloNIDine HCL/PF 80 MCG, WA... MISCELLANE ONE ×10 (18:08→23:01)
[2019-05-25] MEDS ORDERED: VANCOMYCIN 1,000 MG VIAL MISCELLANE ONE (19:07)
--- NOTE | 2019-05-25 20:32 | XR ---
EXAMINATION TYPE: XR shoulder limited LT DATE OF EXAM: 05/25/2019 COMPARISON: NONE HISTORY: Postop TECHNIQUE: Single view FINDINGS: There is a left shoulder prosthesis. Components are in anatomic position. IMPRESSION: No complicating process seen.
[2019-05-25] MEDS ORDERED: TEMAZEPAM 15 MG CAP PO PRN (21:00)
--- NOTE | 2019-05-25 21:21 | P.ANPRN ---
Procedure Note - Anesthesia - Nerve Block Performed Left Interscalene Single Time Out Performed: Yes Date of Procedure: 05/25/19 Procedure Start Time: 19:53 Procedure Stop Time: 20:05 Location of Patient: Phase I Indication: Requested by Surgeon Specifically requested for management of pain by DrLeonides: Wang Kwan Preparation: Sterile Prep Position: Supine Needle Types: Pajunk Needle Gauge: 21 Ultrasound used to visualize needle placement: Yes Ultrasound used to observe medication spread: Yes Injectate: Other (see comment) (bupivacaine 0,25 % 20 ml) Adjunct: Epinephrine (see comment for dilution ratio) Blood Aspirated: No Pain Paresthesia on Injection Noted: No Resistance on Injection: Normal Image Stored and Saved: Yes Events: Uneventful and Well Tolerated (20 ml)
[2019-05-25] MEDS: HYDROmorphone 0.5 MG/0.5 ML SYRINGE IVP PRN ×2 (21:25→21:30)
[2019-05-25] MEDS ORDERED: LACTATED RINGERS 1,000 ML IV ONE ×2 (21:30)
[2019-05-25] MEDS ORDERED: CYCLOBENZAPRINE 10 MG TAB PO PRN (23:07)
[2019-05-25] MEDS: HYDROcodone/APAP 5-325MG 1 EACH TAB PO PRN (23:13)
[2019-05-26] MEDS: HYDROmorphone 0.5 MG/0.5 ML SYRINGE IVP PRN ×2 (01:00→22:00)
[2019-05-26] MEDS: LACTATED RINGERS 1,000 ML IV SCH ×4 (01:01→23:24)
[2019-05-26] MEDS: HYDROcodone/APAP 5-325MG 1 EACH TAB PO PRN ×3 (05:19→17:24)
--- NOTE | 2019-05-26 06:34 | OP ---
OPERATIVE REPORT DATE OF PROCEDURE: 05/25/2019. SURGEON: Wang Kwan MD. CNA LTC: Erasmo SARAVIA. PREOPERATIVE DIAGNOSIS: Left shoulder osteoarthrosis. POSTOPERATIVE DIAGNOSIS: Left shoulder osteoarthrosis. OPERATION: Left total shoulder arthroplasty. ANESTHESIA: General endotracheal. ESTIMATED BLOOD LOSS: 200 mL. DRAINS: One deep drain. COMPLICATIONS: None apparent. DISPOSITION: Postanesthesia care unit. INDICATIONS: Mr. Gill is a very pleasant 73-year-old gentleman with long-standing left shoulder pain. Workup including x-rays revealed advanced osteoarthrosis of the left shoulder. At this point, it was felt that he has failed conservative management and he would like to proceed with operative intervention. The risks of procedure were discussed with him in detail. These risks include, but are not limited to risk of infection, nerve damage, bleeding, pain, instability of the shoulder, loosening of the implants and deep infection. There is also risk of deep vein thrombosis which could lead to fatal pulmonary embolism. The patient understood the risks. All of his questions with regards to the risks of the procedure were answered to his satisfaction. An appropriate informed consent was obtained. DESCRIPTION OF THE PROCEDURE: Patient identified in the preoperative holding area. Surgical sites marked by both the patient and myself. He was given 2 grams of Ancef IV for prophylactic purposes. He was then transferred to the operative suite. He was placed supine on the operating room table. General anesthetic was then administered, dosed per the anesthesia without apparent complication. Examination under anesthesia of the left shoulder was then performed. He had elevation to 100 degrees. External rotation at the side was to 20 degrees. The patient was then placed into the beach chair position well-padded in preparation for surgery. Great care was taken to ensure that his cervical spine is in neutral alignment and well padded and maintained that way throughout the operative procedure. Great care was also taken to ensure that his left legs were appropriately padded as well. The patient's left upper extremity was then prepped and draped in usual sterile fashion. Standard surgical pause was undertaken to ensure that we were operating on the correct site and that appropriate preoperative antibiotics had been given. All staff in the room were in agreement and we proceeded. The acromion, AC joint, clavicle and coracoid were marked with surgical pen. A planned incision starting at the level of the clavicle and extending distally over the deltopectoral interval approximately 1 cm lateral to the coracoid was marked with a surgical pen. The incision was then made with a 10-blade scalpel. Dissection was carried down sharply to the deltoid fascia. The deltopectoral interval was identified at the level of the clavicle. A small band retractor was then placed onto the proximal deltoid. I then released the deltoid fascia on the lateral aspect of the cephalic vein. The vein was preserved and left in its bed medially. The cephalic vein was protected throughout the entire case. I then identified the clavipectoral fascia. It was incised proximally at the level of the coracoacromial ligament. The coracoacromial ligament was left intact. I then used my finger to spread the interval between the conjoined tendon and the subscapularis. I felt for the axillary nerve which was readily palpable. I then cleared the subacromial and subdeltoid spaces of bursal and scar tissue. I then utilized a Brown retractor to hold the deltoid and expose the humeral head. I then proceeded with release of the subscapularis and anterior inferior shoulder capsule. The rotator cuff was inspected. It was found to be intact. The rotator interval was identified. The course of the biceps tendon was also identified. I then released the rotator interval. It was released at the base of the coracoid and then out laterally. The subscapularis and capsule were released intratendinously. The subscapularis and capsule release extended distally in a lazy-S fashion approximately 1 cm medial to the biceps tendon. I then continued to release the capsule along the inferior neck in a vertical fashion to approximately the 6 o'clock position. Great care was taken to ensure that the capsule was always visualized as it was released to avoid injuring the axillary nerve. I then brought a Bernstein surgical instrument maker with the arm externally rotated and abducted. I continued to release the capsule inferomedially to the 4 o'clock position. The inferior osteophytes were now removed as well. This was done with a rongeur. I then proceeded with preparation of the humerus. I removed all the goat's singer osteophytes. I then removed the subchondral plates from the superior aspect of the humeral head utilizing a large rongeur. I then used the starting reamer to gain access to the humeral canal. This was 1 cm medial to the rotator cuff insertion and 1 cm posterior to the bicipital groove. I then prepared the humeral canal with hand reaming. I started with a 6 mm reamer and progressed in 1 mm increments until firm resistance was encountered. This was at 11 mm. The reamer handle was then left in place. I then utilized a humeral resection guide. This was set at 30 degrees of retrotorsion. The cutting block was set 1 to 2 mm above the insertion of the rotator cuff. I then proceeded to osteotomized the humeral head with an oscillating saw. I removed the resection guide and then completed the osteotomy. I then proceeded with trial stem placement. I started with a size 6 broach and incrementally increased up to a size 11 broach. This was set at 30 degrees of retrotorsion. The 11 mm trial stem was then left in place. I then proceeded with a trial reduction. I started with a 46 x 21 x 50 head. This seemed to fit very nicely. The head fit opposite the glenoid. The rotator cuff was not tented. The internal rotation was 90 degrees. Elevation was to 150 degrees and translation was 1/2 of the head in neutral rotation and 1/4 of the head inferiorly in 15 to 20 degrees of abduction. I then removed the trial head. The stem was then left in place. I then proceeded with exposure of the glenoid. At this point, I did release the biceps tendon. This was tenotomized at the level of superior labrum. A bone hook was then utilized to pull the humerus out laterally. I inspected the joint for any loose bodies. The condition of the cuff was again inspected. It was in excellent condition. The Bhattman retractor was then placed on the posterior glenoid rim. The arm was placed in approximately 80 degrees of abduction and in slight flexion on a Bernstein stand. I then proceeded to remove the hypertrophic labrum to definitively identify the actual glenoid. I then selected the size of the glenoid. A large size glenoid seemed to fit very nicely. I then utilized a starting drill to make the centering hole. I then proceeded to ream the glenoid fossa. This was a large size reamer. The reamer was then taken down to paprika sign. He had a nice bleeding surface. Great care was taken to perform minimal reaming as possible as to preserve as much subchondral bone as possible. There was a tiny bit of posterior inferior glenoid bone loss and I preferentially took off slightly more anterior glenoid with the reaming. I then proceeded to place the glenoid drill holes. The peripheral holes were then placed and the center hole was drilled as well. I then placed a trial large size glenoid and it fit very nicely onto the real glenoid. I then proceed with cementing. I [place] the wound and the bone. The drill holes were packed with Ray-Robert sponges. The cement was then mixed on the back table by the help desk assistant. The drill holes were then packed with antibiotic impregnated bone cement utilizing a 20 mL syringe. These were packed very tightly. A small amount of cement was then placed on the posterior aspect of the real glenoid component as well. I then impacted the real glenoid component into place. It was a Biomet large-sized pegged glenoid component with a Regenerex central peg. Excess cement was then removed utilizing a [place] elevator. Pressure was held on the glenoid component until the cement had hardened. I then removed the Bhattman retractor. I then proceeded with humeral component trial reduction with the real glenoid. The 46 x 21 x 50 head was then placed back onto the stem. Again this is taken through a trial. The head set opposite the glenoid. The rotator cuff was not tented. Elevation was to 150 degrees, internal rotation at 90 degrees and translation was 1/2 of the head in neutral rotation, 1/4 of the head in 15 to 20 degrees of abduction. I then had the training representative open a 46 x 21 x 50 real head a size 11 Biomet mini stem. The stem was then impacted in the canal in 30 degrees of retrotorsion. The real head was then impacted onto the stem with a dry Zepeda taper. The shoulder was then reduced. I then proceeded with closure. Again the wound was thoroughly irrigated with sterile saline solution with antibiotic added. The rotator interval was closed very tightly with 0 Vicryl interrupted suture. The subscapularis and anterior capsule were closed with #2 FiberWire interrupted suture. A deep drain was then placed and brought out superiorly away from the incision. Approximately 500 mg of vancomycin powder was then placed in the wound. The deltopectoral interval was then closed with 0 Vicryl interrupted suture. The wound was again thoroughly irrigated with sterile saline solution with antibiotic added. The remaining 500 mg of vancomycin powder was then placed. The subcutaneous tissue was then closed with 2-0 Vicryl interrupted suture and the skin was closed with running 3-0 Quill suture. Dermabond was then applied to the incision. A sterile compressive dressing was applied. The patient's left upper extremity was then placed into a shoulder immobilizer. All sponge and needle counts were deemed correct prior to closure. The patient tolerated procedure without apparent complication. He was transferred recovery room in stable condition. MMODL / IJN: [id number] /
[2019-05-26] MEDS: ETODOLAC 400 MG TAB PO SCH ×2 (07:59→22:02)
[2019-05-26] MEDS: MULTIVITAMINS, THERA 1 EACH TAB PO SCH (07:59)
[2019-05-26] MEDS: PANTOPRAZOLE 40 MG TABLET PO SCH (07:59)
[2019-05-26 08:05] LABS: Basophils % (A) 0 %; Eosinophils % (A) 0 %; HCT 40.9 % (39.0-53.0); HGB 13.5 gm/dL (13.0-17.5); Lymphocytes % (A) 9 %; MCHC 32.9 g/dL (31.0-37.0); MCV 88.2 fL (80.0-100.0); Mean Platelet Volume 7.2; Monocytes # (A) 0.6 k/uL (0-1.0); Monocytes % (A) 5 %; Neutrophils # (A) 9.8 k/uL (1.3-7.7); Neutrophils % (A) 85 %; Platelet Count 241 k/uL (150-450); RBC 4.64 m/uL (4.30-5.90); RDW 12.8 % (11.5-15.5); WBC 11.6 k/uL (3.8-10.6)
[2019-05-26] MEDS ORDERED: LIPOFLAVONOID PO SCH (09:00)
--- NOTE | 2019-05-26 10:48 | P.PN ---
Subjective Progress Note Date: 05/26/19 Principal diagnosis: Left TSA Patient is seen at bedside this morning. He is postop day #1 from left total shoulder arthroplasty. He has pain at the surgical site as expected. He also had some residual numbness along left side of neck, ear, jaw line and some difficulty swallowing this morning possiblly from nerve block but states it is improving. He was able to eat breakfast. He is denying slurred speech, headaches, changes in vision, facial droop. He is denying numbness in left upper extremity. Review of systems is negative for fever, chills, chest pain, shortness of breath or other Objective - Vital Signs Vital signs: Vital Signs Temp 97.4 F L 05/26/19 08:00 Pulse 83 05/26/19 08:00 Resp 16 05/26/19 08:00 BP 117/68 05/26/19 08:00 Pulse Ox 93 L 05/26/19 08:00 Intake & Output 05/25/19 05/26/19 05/26/19 18:59 06:59 18:59 Intake Total 850 200 Output Total 755 Balance 850 -555 Weight 99.8 kg 99.8 kg Intake: IV 850 200 Output: Drainage 80 Left shoulder 80 Urine 475 Estimated Blood Loss 200 Other: Voiding Method Urinal Urinal - Exam Inspection reveals a benign surgical wound. Drain intact. There is no active bleeding or drainage. Neurovascular status is intact throughout the upper extremity with motor and sensation fully intact. Calf is soft and nontender. 2+ dorsalis pedis pulse and less than 2 second cap refill is present. - Constitutional General appearance: Present: no acute distress - Labs CBC & Chem 7: 05/26/19 07:08 Labs: Abnormal Lab Results - Last 24 Hours (Table) 05/26/19 Range/Units 07:08 WBC 11.6 H (3.8-10.6) k/uL Neutrophils # 9.8 H (1.3-7.7) k/uL Assessment and Plan (1) Status post total replacement of left shoulder Narrative/Plan: Drain was removed without complication. We will monitor the possible side effects from the nerve block. He will continue with routine postop orthopedic protocol including pain management, wound care, DVT prophylaxis and medical management. Expect that he will transfer to home tomorrow Current Visit: Yes Status: Acute Priority: Medium Code(s): Z96.612 - PRESENCE OF LEFT ARTIFICIAL SHOULDER JOINT SNOMED Code(s): 833322866 Time with Patient: Less than 30
[2019-05-26] MEDS ORDERED: FLUTICASONE 50MCG/SPRAY NASAL 16GM NASAL SCH (21:00)
[2019-05-26] MEDS ORDERED: ATORVASTATIN 20 MG TAB PO SCH (21:00)
--- NOTE | 2019-05-26 21:30 | P.CONS ---
History of Present Illness - Reason for Consult Consult date: 05/26/19 Medical management Requesting physician: Wang Kwan - Chief Complaint Left shoulder pain - History of Present Illness Consultation: This is a very pleasant 73-year-old patient of Dr. Romero. Chronic stable medical conditions include GERD, prostate cancer treated in 2018, osteoarthritis, obstructive sleep apnea uses CPAP machine and hyperlipidemia. Patient has undergone left shoulder arthroplasty. Postprocedure pain is controlled. Her nausea vomiting. No dizziness no lightheadedness. Denies any cardiac history. is present. Review of systems: GEN.: None EYES: None HEENT: None NECK: None RESPIRATORY: None CARDIOVASCULAR: None GASTROINTESTINAL: Reflux] GENITOURINARY: None MUSCULOSKELETAL: [Joint pains LYMPHATICS: None HEMATOLOGICAL: None PSYCHIATRY: None NEUROLOGICAL: None Past medical history to include: GERD, hard of hearing, osteoarthritis, obstructive sleep apnea uses CPAP, prostate cancer treated in 2018, tinnitus Social history: Smoked about 2 packs a day for 35 years stopped in 2001. 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 . Family history: Reviewed, noncontributory to presentation Physical examination: VITAL SIGNS: 97.4, 83, 16, 11 7/68, 93% on room air GENERAL: BMI 29, sitting up not in distress. EYES: Pupils equal. Conjunctiva normal. HEENT: External appearance of nose and ears normal, oral cavity grossly normal. NECK: JVD not raised; masses not palpable. HEART: First and second heart sounds are normal; no edema. LUNGS: Respiratory rate normal; clear to auscultation. ABDOMEN: Soft, nontender, liver spleen not palpable, no masses palpable. PSYCH: Alert and oriented x3; mood and affect normal. MUSCULOSKELETAL: Evidence of OA especially in the hands, left arm in a sling, left shoulder dressing, good movement of the fingers and sensation of the hand NEUROLOGICAL: Cranial nerves grossly intact; no facial asymmetry, power and sensation grossly intact. LYMPHATICS: No lymph nodes palpable in the axilla and neck INVESTIGATIONS, reviewed in the clinical context: White count 10.6 hemoglobin 13.5 Blood work from May 10-white count 9.4 hemoglobin 15.2 potassium 4.6 creatinine 1.03 Assessment: -Left shoulder arthroplasty -GERD -Primary osteoarthritis. We have -Obstructive sleep apnea uses CPAP machine -Hyperlipidemia Plan: Home medications resumed. Pain control is in place. Care was discussed with the patient question were answered. Patient has been ambulatory. Thank you Dr. Kwan Past Medical History Past Medical History: Cancer, GERD/Reflux, Hearing Disorder / Deafness, Osteoarthritis (OA), Sleep Apnea/CPAP/BIPAP Additional Past Medical History / Comment(s): SEASONAL ALLERGIES. HYPOGLYCEMIC. USE CPAP. hx. prostate cancer 2018, tinnitus History of Any Multi-Drug Resistant Organisms: None Reported Past Surgical History: Back Surgery, Hernia Repair, Joint Replacement, Prostate Surgery Additional Past Surgical History / Comment(s): MAJOR INJURY TO RIGHT HAND WITH ARTIFICIAL JOINTS. LEFT HAND INJURY, PARTIAL AMPUTATION OF LEFT INDEX FINGER. LUMBAR SURGERY. cataracts removed, robotic laparoscopic prostatectomy, kidney stone removal of the left kidney, left knee replaced 2018 Past Anesthesia/Blood Transfusion Reactions: No Reported Reaction Additional Past Anesthesia/Blood Transfusion Reaction / Comm: some kind of issue w/nerve block in past Past Psychological History: No Psychological Hx Reported Smoking Status: Former smoker Past Alcohol Use History: None Reported Additional Past Alcohol Use History / Comment(s): SMOKED FOR 35 YRS, ABOUT 2 PPW, QUIT 2001. Past Drug Use History: None Reported - Past Family History Mother Family Medical History: No Reported History Father Family Medical History: Cancer Medications and Allergies Home Medications Medication Instructions Recorded Confirmed Type Cyclobenzaprine [Flexeril] 10 mg PO HS PRN 04/13/17 05/25/19 History Diclofenac Sodium [Voltaren] 75 mg PO BID 04/13/17 05/25/19 History Fluticasone Nasal [place] [Flonase 1 dose NASAL HS 04/13/17 05/25/19 History Nasal [place]] Omeprazole 20 mg PO BID 04/13/17 05/25/19 History Multivit-Min/FA/Lycopen/Lutein 1 each PO DAILY 02/10/18 05/25/19 History [Centrum Silver Men Tablet] Simvastatin [Zocor] 40 mg PO HS 05/14/18 05/25/19 History Lipoflavonoid 1 tab PO DAILY 05/18/19 05/25/19 History Allergies Allergy/AdvReac Type Severity Reaction Status Date / Time No Known Allergies Allergy Verified 05/25/19 15:45 Physical Exam Vitals: Vital Signs Temp Pulse Pulse Resp BP BP Pulse Ox 05/26/19 08:00 97.4 F L 83 16 117/68 93 L 05/26/19 05:25 16 05/26/19 01:00 16 05/26/19 00:00 95 164/75 05/25/19 23:45 79 127/64 05/25/19 23:30 87 154/84 05/25/19 23:15 82 155/88 05/25/19 23:00 84 160/76 05/25/19 22:45 81 137/84 05/25/19 22:30 89 141/77 05/25/19 22:24 16 05/25/19 22:15 97.4 F L 80 16 148/73 95 05/25/19 21:45 82 16 118/59 94 L 05/25/19 21:30 88 16 131/74 94 L 05/25/19 21:15 97.4 F L 83 16 129/60 93 L 05/25/19 21:05 82 16 128/61 94 L 05/25/19 20:50 85 16 129/65 95 05/25/19 20:35 81 16 136/60 96 05/25/19 20:20 73 16 131/63 95 05/25/19 19:45 97.4 F L 81 16 137/62 95 05/25/19 15:58 97.8 F 79 20 157/73 97 Intake and Output 05/25/19 05/26/19 05/26/19 22:59 06:59 14:59 Intake Total 1050 Output Total 200 555 Balance 850 -555 Intake: IV 1050 Output: Drainage 80 Left shoulder 80 Urine 475 Estimated Blood Loss 200 Other: Voiding Method Urinal Urinal Weight 99.8 kg Results CBC & Chem 7: 05/26/19 07:08 Labs: Abnormal Lab Results - Last 24 Hours (Table) 05/26/19 Range/Units 07:08 WBC 11.6 H (3.8-10.6) k/uL Neutrophils # 9.8 H (1.3-7.7) k/uL
[2019-05-27 07:25] VITALS: BP 134/78; PULSE 81; RESP 18; TEMP 97.9
[2019-05-27] MEDS: HYDROmorphone 0.5 MG/0.5 ML SYRINGE IVP PRN (07:42)
[2019-05-27] MEDS: ETODOLAC 400 MG TAB PO SCH (08:27)
[2019-05-27] MEDS: PANTOPRAZOLE 40 MG TABLET PO SCH (08:28)
[2019-05-27] MEDS: MULTIVITAMINS, THERA 1 EACH TAB PO SCH (08:28)
--- NOTE | 2019-05-27 09:13 | P.DS ---
Providers Date of admission: 05/25/19 15:20 Expected date of discharge: 05/27/19 Attending physician: Wang Kwan Consults: 05/25/19 17:15 Consult Physician Routine Consulting Provider: Armani Esparza Consult Reason/Comments: post op medical management Do you want consulting provider notified?: Yes Primary care physician: Gilmer Lee Bacheldor - Discharge Diagnosis(es) (1) Status post total replacement of left shoulder Patient was admitted to the OR on 05/25/2019 to undergo a left total shoulder arthroplasty. He had failed conservative measures as an outpatient and desired to proceed with elective surgery after given informed consent. He underwent the above procedure which he tolerated well without complication. Postoperative hospital course has remained without complication. On day of discharge he is afebrile, vital signs stable, labs within acceptable ranges, tolerating by mouth meds and diet, voiding without difficulty, positive flatus, denies abdominal pain or calf pain, pain is controlled on oral pain medication and has no new complaints. Wound is benign, neurovascular status is intact, calf is soft and nontender, abdomen soft and nontender. Review of systems is negative for numbness, tingling, fever, chills, chest pain, shortness of breath, nausea, vomiting, dizziness, headaches, slurred speech or other Current Visit: Yes Status: Acute Priority: Medium Procedures: Left TSA Patient Condition at Discharge: Good Plan - Discharge Summary Discharge Rx Participant: Yes New Discharge Prescriptions: New Docusate [Colace] 100 mg PO BID #60 capsule Doxycycline Hyclate 100 mg PO BID #10 tab HYDROcodone/APAP 7.5-325MG [[place] 7.5-325] 1 - 2 each PO Q6HR PRN #56 tab PRN Reason: Pain No Action Omeprazole 20 mg PO BID Fluticasone Nasal [place] [Flonase Nasal [place]] 1 dose NASAL HS Diclofenac Sodium [Voltaren] 75 mg PO BID Cyclobenzaprine [Flexeril] 10 mg PO HS PRN PRN Reason: Muscle Spasm Multivit-Min/FA/Lycopen/Lutein [Centrum Silver Men Tablet] 1 each PO DAILY Simvastatin [Zocor] 40 mg PO HS Lipoflavonoid 1 tab PO DAILY Discharge Medication List Cyclobenzaprine [Flexeril] 10 mg PO HS PRN 04/13/17 [History] Diclofenac Sodium [Voltaren] 75 mg PO BID 04/13/17 [History] Fluticasone Nasal [place] [Flonase Nasal [place]] 1 dose NASAL HS 04/13/17 [History] Omeprazole 20 mg PO BID 04/13/17 [History] Multivit-Min/FA/Lycopen/Lutein [Centrum Silver Men Tablet] 1 each PO DAILY 02/10/18 [History] Simvastatin [Zocor] 40 mg PO HS 05/14/18 [History] Lipoflavonoid 1 tab PO DAILY 05/18/19 [History] Docusate [Colace] 100 mg PO BID #60 capsule 05/27/19 [Rx] Doxycycline Hyclate 100 mg PO BID #10 tab 05/27/19 [Rx] HYDROcodone/APAP 7.5-325MG [[place] 7.5-325] 1 - 2 each PO Q6HR PRN #56 tab 05/27/19 [Rx] Follow up Appointment(s)/Referral(s): Wang Kwan MD [STAFF PHYSICIAN] - 06/06/19 8:50 am Activity/Diet/Wound Care/Special Instructions: Keep wound clean and dry Take meds as directed Follow-up with Dr. Kwan in office Maintain sling Non weight bearing left upper extremity May shower in 3 days if no bleeding Discharge Disposition: HOME WITH HOME HEALTH SERVICES
--- NOTE | 2019-05-29 23:40 | P.PN ---
Progress Note - Text Progress Note Date: 05/27/19 - Chief Complaint Left shoulder pain Consultation: This is a very pleasant 73-year-old patient of Dr. Romero. Chronic stable medical conditions include GERD, prostate cancer treated in 2018, osteoarthritis, obstructive sleep apnea uses CPAP machine and hyperlipidemia. Patient has undergone left shoulder arthroplasty. Today-feeling better. pain incontrol. no nausea vomiting. Feeling better. Breathing stable. Did tolerate his meals. Review of systems: Was done for constitutional, cardiovascular, GI, pulmonary. relevant finding as above Current medications reviewed in today's electronic records Physical examination: VITAL SIGNS: 97.9-81-18-134/78-96% on room air GENERAL:sitting up, comfortable EYES: Pupils equal. Conjunctiva normal. HEENT: External appearance of nose and ears normal, oral cavity grossly normal. NECK: JVD not raised; masses not palpable. HEART: First and second heart sounds are normal; no edema. LUNGS: Respiratory rate normal; clear to auscultation. ABDOMEN: Soft, nontender, liver spleen not palpable, no masses palpable. PSYCH: Alert and oriented x3; mood and affect normal. MUSCULOSKELETAL: Evidence of OA especially in the hands, left arm in a sling, left shoulder dressing, good movement of the fingers and sensation of the hand INVESTIGATIONS, reviewed in the clinical context: White count 11.6 hemoglobin 13.5 Previous testing White count 10.6 hemoglobin 13.5 Blood work from May 10-white count 9.4 hemoglobin 15.2 potassium 4.6 creatinine 1.03 Assessment: -Left shoulder arthroplasty -GERD -Primary osteoarthritis. -Obstructive sleep apnea uses CPAP machine -Hyperlipidemia Plan: stable. Continue current medication treatment plan. Discussed the patient. Thank you Dr. Kwan
== END 2019-05-27 11:20 | disposition home or self-care (01) | DRG 483 ==
LOC: 2ORMAIN 15:20 → EDSTATUS 17:20 → 4SSUR 20:13
PROVIDERS: ADMIT Orthopaedic Surgery Sports Medicine; ATTEND Orthopaedic Surgery Sports Medicine
PROC: 0RRK0JZ Replacement of Left Shoulder Joint with Synthetic Substitute, Open Approach (ICD-10-PCS; principal; 2019-05-25 17:20)
DX: M19.012 Primary osteoarthritis, left shoulder (principal); B02.29 Other postherpetic nervous system involvement; E78.5 Hyperlipidemia, unspecified; G25.81 Restless legs syndrome; E55.9 Vitamin D deficiency, unspecified; B35.1 Tinea unguium; G47.33 Obstructive sleep apnea (adult) (pediatric); M17.11 Unilateral primary osteoarthritis, right knee; M19.042 Primary osteoarthritis, left hand; M19.041 Primary osteoarthritis, right hand; K21.0 Gastro-esophageal reflux disease with esophagitis; H91.90 Unspecified hearing loss, unspecified ear; H93.19 Tinnitus, unspecified ear; Z79.899 Other long term (current) drug therapy; Z87.891 Personal history of nicotine dependence; Z85.46 Personal history of malignant neoplasm of prostate; Z99.89 Dependence on other enabling machines and devices; Z96.652 Presence of left artificial knee joint; Z90.79 Acquired absence of other genital organ(s); Z89.022 Acquired absence of left finger(s); Z87.442 Personal history of urinary calculi; Z98.42 Cataract extraction status, left eye; Z98.41 Cataract extraction status, right eye; Z98.890 Other specified postprocedural states; Z91.048 Other nonmedicinal substance allergy status; Z80.8 Family history of malignant neoplasm of other organs or systems; Z83.49 Family history of other endocrine, nutritional and metabolic diseases
CPT/HCPCS: 64415; 76942; 85025; 88300

== ENCOUNTER → 2019-11-10 | Outpatient (CLI) | payer MEDICARE, BC | END | disposition home or self-care (01) | LOC: LABWHC1 08:21 | PROVIDERS: ATTEND Urology | DX: C61 Malignant neoplasm of prostate (principal) | CPT/HCPCS: 36415; 84153 ==

== ENCOUNTER → 2020-02-28 | Outpatient (CLI) | payer MEDICARE, BC ==
[2020-02-28 10:14] LABS: Basophils # (A) 0.1 k/uL (0-0.2); Basophils % (A) 1 %; Eosinophils # (A) 0.3 k/uL (0-0.7); Eosinophils % (A) 4 %; HCT 45.5 % (39.0-53.0); HGB 14.5 gm/dL (13.0-17.5); Lymphocytes # (A) 1.4 k/uL (1.0-4.8); Lymphocytes % (A) 24 %; MCV 90.6 fL (80.0-100.0); Mean Platelet Volume 7.3; Monocytes # (A) 0.4 k/uL (0-1.0); Monocytes % (A) 8 %; Neutrophils # (A) 3.5 k/uL (1.3-7.7); Neutrophils % (A) 60 %; Platelet Count 270 k/uL (150-450); RBC 5.02 m/uL (4.30-5.90); RDW 13.1 % (11.5-15.5); WBC 5.8 k/uL (3.8-10.6)
== END | disposition home or self-care (01) ==
LOC: LABPAT 08:06
PROVIDERS: ATTEND Surgery
DX: Z01.818 Encounter for other preprocedural examination (principal); K43.9 Ventral hernia without obstruction or gangrene; Z87.891 Personal history of nicotine dependence
CPT/HCPCS: 36415; 85025; 93005

== ENCOUNTER 2020-03-26 06:09 | Day surgery (SDC) | payer MEDICARE, BC ==
[2020-03-20 10:48] VITALS: BMI 28.3
[~2020-03-26 06:09] MED LIST changes: +ACETAMINOPHEN TAB 500 MG TAB PO PRN; +DEXAMETHASONE SOD PHOSPHATE 4 MG/ML 1 ML VIAL IV ONE; +HEPARIN SODIUM,PORCINE 5,000 UNIT/ML 1 ML VIAL SQ PRN; +LACTATED RINGERS 1,000 ML IV SCH; -LIDOCAINE 1% 20 ML VIAL (10MG/ML) FOR IV START INTRADERMA PRN; -MIDAZOLAM 2 MG/2 ML VIAL IV PRN; -TRANEXAMIC ACID 1,000 MG in SODIUM CHLORIDE 0.9% 100 ML IVPB ONE; -fentaNYL (PF) 50 MCG/ML 2 ML AMP IVP PRN
[2020-03-26 07:04] LABS: Glucose,Whole Blood 98 mg/dL (75-99)
[2020-03-26] MEDS ORDERED: LIDOCAINE 1% (10MG/ML) FOR IV START INTRADERMA ONE (07:05)
--- NOTE | 2020-03-26 07:43 | P.GSHP ---
History of Present Illness H&P Date: 03/26/20 Chief Complaint: incisional hernia Patient here today for elective repair incisional hernia. Patient had a previous ventral hernia repair with mesh. Patient then underwent robotic prostatectomy. That incision is in the vicinity of our previous ventral hernia repair. Shortly after his robotic prostatectomy patient felt a bulge at the ventral hernia incision site. Increasing in size. Last seen in the office one year ago. Mild pain at times. Past Medical History Past Medical History: Cancer, GERD/Reflux, Osteoarthritis (OA), Prostate Disorder, Sleep Apnea/CPAP/BIPAP Additional Past Medical History / Comment(s): HYPOGLYCEMIC, prostate cancer, hx kidney stones History of Any Multi-Drug Resistant Organisms: None Reported Past Surgical History: Back Surgery, Hernia Repair, Joint Replacement, Orthopedic Surgery, Prostate Surgery Additional Past Surgical History / Comment(s): rt hand surgery after injury with reatached rt thumb and skin graft and two fingers with artificial joints, left shoulder replacement, left knee replacement, juani cataracts removed, robotic laparoscopic prostatectomy, surgery for kidney stones Past Anesthesia/Blood Transfusion Reactions: Previous Problems w/ Anesthesia Additional Past Anesthesia/Blood Transfusion Reaction / Comment(s): some kind of issue w/nerve block in past- "one nerve block did not take right" Smoking Status: Former smoker - Past Family History Mother Family Medical History: Deep Vein Thrombosis (DVT) Father Family Medical History: Cancer Additional Family Medical History / Comment(s): melanoma Medications and Allergies Home Medications Medication Instructions Recorded Confirmed Type Cyclobenzaprine [Flexeril] 10 mg PO HS PRN 04/13/17 03/26/20 History Diclofenac Sodium [Voltaren] 75 mg PO BID 04/13/17 03/26/20 History Fluticasone Nasal [place] [Flonase 2 dose NASAL HS PRN 04/13/17 03/26/20 History Nasal [place]] Omeprazole 20 mg PO BID 04/13/17 03/26/20 History Multivit-Min/FA/Lycopen/Lutein 1 each PO DAILY 02/10/18 03/26/20 History [Centrum Silver Men Tablet] Simvastatin(Dose Unknown) 1 tab PO HS 03/20/20 03/26/20 History Allergies Allergy/AdvReac Type Severity Reaction Status Date / Time No Known Allergies Allergy Verified 03/26/20 06:52 Surgical - Exam Vital Signs Temp Pulse Resp BP Pulse Ox 97.6 F 68 16 147/76 97 03/26/20 06:37 03/26/20 06:37 03/26/20 06:37 03/26/20 06:37 03/26/20 06:37 Physical exam: General: Well-developed, well-nourished HEENT: Normocephalic, sclerae nonicteric Abdomen: Nontender, nondistended, reducible incisional hernia above umbilicus Extremities: No edema Neuro: Alert and oriented Assessment and Plan (1) Incisional hernia Narrative/Plan: Will proceed with repair incisional hernia with mesh. Risks of bleeding, infection, recurrence, bladder and bowel injury, numbness, nerve injury procedure were discussed with the patient. The patient understands and wishes to proceed. Current Visit: Yes Status: Acute Code(s): K43.2 - INCISIONAL HERNIA WITHOUT OBSTRUCTION OR GANGRENE SNOMED Code(s): 247533942
[2020-03-26] MEDS ORDERED: NEOSTIGMINE 1 MG/ML 10 ML VIAL ONE (07:44)
[2020-03-26] MEDS ORDERED: fentaNYL (PF) 50 MCG/ML 2 ML AMP ONE (07:44)
[2020-03-26] MEDS ORDERED: SUCCINYLCHOLINE CHLORIDE 100 MG/5 ML SYR IV ONE (07:44)
[2020-03-26] MEDS ORDERED: PHENYLEPHRINE-0.9% NACL SYG 1 MG/10 ML SYRINGE ONE (07:44)
[2020-03-26] MEDS ORDERED: KETOROLAC 15 MG/ML 1 ML VIAL ONE (07:44)
[2020-03-26] MEDS ORDERED: ROCURONIUM 10 MG/ML (10 ML VIAL) IV ONE (07:44)
[2020-03-26] MEDS ORDERED: PROPOFOL 10 MG/ML 20 ML VIAL IV ONE (07:44)
[2020-03-26] MEDS ORDERED: LIDOCAINE 1% INJ 10MG/ML (20 ML MDV) ONE (07:44)
[2020-03-26] MEDS ORDERED: GLYCOPYRROLATE 0.2 MG/ML 2 ML VIAL ONE (07:44)
[2020-03-26] MEDS ORDERED: BUPIVACAINE (PF) 0.25% 30 ML VIAL SQ ONE ×2 (08:11→09:01)
[2020-03-26] MEDS ORDERED: LACTATED RINGERS 1,000 ML IV ONE (08:40)
[2020-03-26 09:21] VITALS: TEMP 97.9
--- NOTE | 2020-03-26 09:31 | P.OP ---
Date of Procedure: 03/26/20 Procedure(s) Performed: PREOPERATIVE DIAGNOSIS: Reducible incisional hernia POSTOPERATIVE DIAGNOSIS: Same PROCEDURE: Reducible incisional hernia repair with mesh SURGEON: Brant EBL: Minimal ANESTHESIA: Gen. COMPLICATIONS: None OPERATIVE PROCEDURE: Patient placed on the operating table in the supine position. Abdomen was prepped and draped in usual sterile fashion. The previous incision was re-incised. Dissection through the subcutaneous tissues took place using electrocautery. A moderate sized hernia was identified. The hernia sac was carefully dissected down to the level of the fascia where it was excised. The patient had a total of 2 fascial openings with the largest measuring about 4.5cm in diameter. The smaller defect was inferior and to the right measuring less than 1 cm. Some adhesions between the hernia sac and the fascia was divided using electrocautery. There was no significant adhesions to the previously placed subfascial mesh that was superior to this hernia. It appeared that the hernia had come through the inferior aspect of the previously placed mesh. A 6.4 cm ventral ex mesh was then placed in the subfascial location. This was sutured in place using trans-fascial 0 Ethibond sutures. The defect at the smaller hernia was closed using [id number] 0 Ethibond irving tures. The larger defect was then closed horizontally using vest over pants mattress 0 Ethibond sutures. The subcutaneous tissues were closed using 3-0 Vicryl sutures. The skin was closed using 4-0 Monocryl sutures. Skin glue and sterile dressings were applied. DISPOSITION: Stable to recovery room
[2020-03-26] MEDS: HYDROmorphone 0.5 MG/0.5 ML SYRINGE IVP PRN ×2 (09:35→09:51)
[2020-03-26 10:15] VITALS: RESP 20
[2020-03-26] MEDS ORDERED: traMADol 50 MG TAB ONE (10:29)
[2020-03-26 11:36] VITALS: BP 132/88; PULSE 65
[2020-03-26] MEDS ORDERED: ACETAMINOPHEN TAB 325 MG TAB PO SCH (12:00)
[2020-03-26] MEDS ORDERED: IBUPROFEN 600 MG TAB PO SCH (15:00)
== END 2020-03-26 11:43 | disposition home or self-care (01) ==
LOC: OR 06:09
PROVIDERS: ATTEND Surgery
DX: Z90.79 Acquired absence of other genital organ(s) (principal); K21.9 Gastro-esophageal reflux disease without esophagitis; M19.90 Unspecified osteoarthritis, unspecified site; G47.33 Obstructive sleep apnea (adult) (pediatric); E78.5 Hyperlipidemia, unspecified; Z99.89 Dependence on other enabling machines and devices; E16.2 Hypoglycemia, unspecified; Z85.46 Personal history of malignant neoplasm of prostate; Z87.442 Personal history of urinary calculi; Z98.890 Other specified postprocedural states; Z96.612 Presence of left artificial shoulder joint; Z96.652 Presence of left artificial knee joint; Z98.42 Cataract extraction status, left eye; Z98.41 Cataract extraction status, right eye; Z87.891 Personal history of nicotine dependence; Z82.49 Family history of ischemic heart disease and other diseases of the circulatory system; Z80.8 Family history of malignant neoplasm of other organs or systems; Z79.899 Other long term (current) drug therapy
CPT/HCPCS: 88302; 49560; 49568; C1781; J1644; J1100; J2710; J0690; J2405; J2001; J3010; J1885; J2370; J0330; J2704; J1170

== ENCOUNTER → 2020-10-08 | Outpatient (CLI) | payer MEDICARE, BC | END | disposition home or self-care (01) | LOC: LABWHC1 08:45 | PROVIDERS: ATTEND Urology | DX: C61 Malignant neoplasm of prostate (principal) | CPT/HCPCS: 36415; 84153 ==

== ENCOUNTER → 2021-10-12 | Outpatient (CLI) | payer MEDICARE, BC | END | disposition home or self-care (01) | LOC: LABWHC1 07:54 | PROVIDERS: ATTEND Family Medicine | DX: C61 Malignant neoplasm of prostate (principal) | CPT/HCPCS: 36415; G0103 ==

== ENCOUNTER → 2022-10-11 | Outpatient (CLI) | payer MEDICARE, BC ==
[2022-10-11 13:55] LABS: BUN/Creat Ratio 25.67 Ratio (12.00-20.00); Blood Urea Nitrogen 23.1 mg/dL (9.0-27.0); Calcium 9.2 mg/dL (8.7-10.3); Carbon Dioxide 22.1 mmol/L (21.6-31.8); Chloride 110 mmol/L (96-109); Glucose 107 mg/dL (70-110); Potassium 4.4 mmol/L (3.5-5.5); Prostate Specific Antigen <0.14 ng/mL (0.00-6.50); Sodium 143 mmol/L (135-145)
== END | disposition home or self-care (01) ==
LOC: LABWHC1 08:06
PROVIDERS: ATTEND Urology
DX: C61 Malignant neoplasm of prostate (principal)
CPT/HCPCS: 36415; 80048; 84153; 84403

== ENCOUNTER → 2022-12-17 | Outpatient (CLI) | payer MEDICARE, BC ==
[2022-12-17 16:49] LABS: BUN/Creat Ratio 26.33 Ratio (12.00-20.00); Blood Urea Nitrogen 23.7 mg/dL (9.0-27.0); Calcium 9.2 mg/dL (8.7-10.3); Carbon Dioxide 23.6 mmol/L (21.6-31.8); Chloride 112 mmol/L (96-109); Glucose 101 mg/dL (70-110); Potassium 4.4 mmol/L (3.5-5.5); Sodium 145 mmol/L (135-145)
== END | disposition home or self-care (01) ==
LOC: LABWHC1 11:23
PROVIDERS: ATTEND Urology
DX: C61 Malignant neoplasm of prostate (principal)
CPT/HCPCS: 36415; 80048; 84153

== ENCOUNTER → 2023-02-16 | Outpatient (CLI) | payer MEDICARE, BC ==
[2023-02-16 11:38] LABS: Prostate Specific Antigen <0.01 ng/mL (0.000-6.500); Testosterone <10.00 ng/dL (86.98-780.10)
== END | disposition home or self-care (01) ==
LOC: LABWHC1 07:09
PROVIDERS: ATTEND Urology
DX: C61 Malignant neoplasm of prostate (principal)
CPT/HCPCS: 36415; 84153; 84403

== ENCOUNTER → 2023-05-18 | Outpatient (CLI) | payer MEDICARE, BC ==
[2023-05-18 15:25] LABS: Prostate Specific Antigen <0.01 ng/mL (0.000-6.500)
[2023-05-18 15:26] LABS: Testosterone <10.00 ng/dL (86.98-780.10)
== END | disposition home or self-care (01) ==
LOC: LABWHC1 07:09
PROVIDERS: ATTEND Urology
DX: C61 Malignant neoplasm of prostate (principal)
CPT/HCPCS: 36415; 84153; 84402; 84403

== ENCOUNTER → 2023-08-28 | Outpatient (CLI) | payer MEDICARE, BC ==
[2023-08-28 10:40] LABS: Albumin 4.3 g/dL (3.8-4.9)
[2023-08-28 11:10] LABS: Prostate Specific Antigen <0.01 ng/mL (0.000-6.500)
== END | disposition home or self-care (01) ==
LOC: LABWHC1 07:00
PROVIDERS: ATTEND Urology
DX: C61 Malignant neoplasm of prostate (principal)
CPT/HCPCS: 36415; 82040; 84153; 84270; 84403

== ENCOUNTER → 2024-01-05 | Outpatient (CLI) | payer MEDICARE, BC ==
[2024-01-12 19:40] LABS: Albumin, LC/MS/MS 3.9 g/dL (3.6-5.1); Testosterone, Free, LC/MS/MS 1.9 pg/mL (6.0-73.0)
== END | disposition home or self-care (01) ==
LOC: LABWHC1 08:01
PROVIDERS: ATTEND Urology
DX: C61 Malignant neoplasm of prostate (principal)
CPT/HCPCS: 36415; 73030; 82040; 84153; 84270; 84403; 99213

== ENCOUNTER → 2024-05-03 | Outpatient (CLI) | payer MEDICARE, BC ==
[2024-05-03 11:14] LABS: Prostate Specific Antigen 0.13 ng/mL (0.000-6.500)
== END | disposition home or self-care (01) ==
LOC: LABWHC1 07:20
PROVIDERS: ATTEND Urology
DX: C61 Malignant neoplasm of prostate (principal)
CPT/HCPCS: 36415; 84153; 84403

== ENCOUNTER → 2024-08-10 | Outpatient (CLI) | payer MEDICARE, BC ==
[2024-08-10 15:49] LABS: Prostate Specific Antigen 1.46 ng/mL (0.000-6.500)
[2024-08-10 16:12] LABS: Partial Thromboplastin Time 23.1 sec (22.0-30.0); Prothrombin Time 11.4 sec (10.0-12.5)
[2024-08-10 18:08] LABS: HCT 43.8 % (39.6-50.0); MCH 33.1 pg (27.0-32.0); MCHC 34.2 g/dL (32.0-37.0); MCV 96.7 FL (80.0-97.0); Mean Platelet Volume 11.3 FL (9.5-12.2); NRBC Per 100 WBC 0 X 10*3/uL (0.00-0.01); Platelet Count 174 X 10*3/uL (140-440); RBC 4.53 X 10*6/uL (4.40-5.60); RDW 12.3 % (11.5-14.5); WBC 5.03 X 10*3/uL (4.50-10.00)
[2024-08-10 18:51] LABS: % Iron Saturation 22.29 (15.00-50.00); ALT 20 U/L (10-49); AST 22 U/L (14-35); Albumin 4.2 g/dL (3.8-4.9); Albumin/Globulin Ratio 1.83 Ratio (1.60-3.17); Alkaline Phosphatase 87 U/L (41-126); BUN/Creat Ratio 15.67 Ratio (12.00-20.00); Blood Urea Nitrogen 9.4 mg/dL (9.0-27.0); Calcium 9.5 mg/dL (8.7-10.3); Carbon Dioxide 26.3 mmol/L (21.6-31.8); Chloride 104 mmol/L (96-109); Chol/HDL Ratio 2.66 Ratio; Globulin 2.3 g/dL (1.6-3.3); Glucose 81 mg/dL (70-110); Iron 70 UG/DL (65-175); LDL Cholesterol,Calculated 62.4 mg/dL (0.0-131.0); Magnesium 1.9 mg/dL (1.5-2.4); Potassium 3.8 mmol/L (3.5-5.5); Sodium 141 mmol/L (135-145); Total Bilirubin 0.8 mg/dL (0.3-1.2); Total Iron Binding Capacity 314 UG/DL (228-460); Total Protein 6.5 g/dL (6.2-8.2)
[2024-08-10 21:53] LABS: Prealbumin 18.6 mg/dL (18.0-42.0)
[2024-08-12 06:34] LABS: Vitamin A 36 ug/dL (38-106)
== END | disposition home or self-care (01) ==
LOC: LABWHC1 10:18
PROVIDERS: ATTEND Urology
DX: C61 Malignant neoplasm of prostate (principal)
CPT/HCPCS: 36415; 80053; 80061; 82306; 82525; 82607; 82728; 82746; 83036; 83540; 83550; 83735; 83970; 84100; 84134; 84153; 84255; 84403; 84425; 84443; 84590; 85027; 85610; 85730

== ENCOUNTER → 2024-11-14 | Outpatient (CLI) | payer MEDICARE, BC ==
[2024-11-14 10:48] LABS: HCT 44.0 % (39.6-50.0); HGB 14.1 g/dL (13.0-17.0); MCH 28.2 pg (27.0-32.0); MCHC 32.0 g/dL (32.0-37.0); MCV 88.0 FL (80.0-97.0); NRBC Per 100 WBC 0 X 10*3/uL (0.00-0.01); Platelet Count 269 X 10*3/uL (140-440); RBC 5.00 X 10*6/uL (4.40-5.60); RDW 12.9 % (11.5-14.5); WBC 9.89 X 10*3/uL (4.50-10.00)
[2024-11-14 11:17] LABS: Magnesium 2.1 mg/dL (1.5-2.4)
[2024-11-14 11:21] LABS: ALT 21 U/L (10-49); AST 24 U/L (14-35); Albumin 3.9 g/dL (3.8-4.9); Albumin/Globulin Ratio 1.56 Ratio (1.60-3.17); Alkaline Phosphatase 92 U/L (41-126); Anion Gap 11.70 mmol/L (4.00-12.00); BUN/Creat Ratio 21.00 Ratio (12.00-20.00); Bilirubin,Unconjugated >0.10 mg/dL (0.20-1.00); Blood Urea Nitrogen 21.0 mg/dL (9.0-27.0); Calcium 9.0 mg/dL (8.7-10.3); Carbon Dioxide 23.3 mmol/L (21.6-31.8); Chloride 107 mmol/L (96-109); Globulin 2.5 g/dL (1.6-3.3); Glucose 97 mg/dL (70-110); Potassium 4.3 mmol/L (3.5-5.5); Prostate Specific Antigen <0.01 ng/mL (0.000-6.500); Sodium 142 mmol/L (135-145); Total Protein 6.4 g/dL (6.2-8.2)
== END | disposition home or self-care (01) ==
LOC: LABWHC1 08:16
PROVIDERS: ATTEND Urology
DX: C61 Malignant neoplasm of prostate (principal)
CPT/HCPCS: 36415; 80048; 80076; 82306; 83735; 84100; 84153; 84403; 85027